=== PATIENT | female | born 2005 | race Caucasian/White ===

== ENCOUNTER → 2024-05-21 | Outpatient (CLI) | payer BC, SELFPAY ==
[2024-05-21 17:04] LABS: Absolute Lymphocyte Count 1.99 X10^3/uL (0.83-4.51); Absolute Neutrophil Count 4.2 X10^3/uL (2.0-7.7); Basophil# 0.09 X10^3/uL; Basophil% 1.3 % (0-1); Eosinophil# 0.13 X10^3/uL; Eosinophils% 1.8 % (0-5); Hematocrit 41.3 % (37-47); Hemoglobin 13.7 g/dL (12.0-15.0); Lymphocyte # 1.99 X10^3/ul (0.83-4.51); Lymphocyte % 27.7 % (19-41); Mean Corp Hgb Conc 33.2 g/dL (32-36); Mean Corpuscular Hgb 28.2 pg (27.0-32.0); Mean Platelet Vol. 11.7 fl (6.2-12.0); Monocyte# 0.74 X10^3/uL; Monocyte% 10.3 % (0-10); NRBC Flagged by Analyzer 0 % (0-5); Neutrophil # 4.22 X10^3/uL (2.7-7.7); Neutrophil % 58.8 % (47-70); Platelet Count 268 K/mm3 (150-450); RBC Distribution Width CV 13.1 % (11.6-14.6); RBC Distribution Width SD 40.5 fl (35.1-43.9); Red Blood Count 4.86 M/mm3 (4.2-5.4); White Blood Count 7.2 K/mm3 (4.4-11.0)
[2024-05-21 18:17] LABS: Cholesterol 169 mg/dL (<=190); High Density Lipoprotein 71 mg/dL; Low Density Lipoprotein Calc. 87 mg/dL; Triglycerides 55 mg/dL; Very Low Density Lipoprotein 11 mg/dL (5-40); cholesterol:hdl ratio screen 2.37
[2024-05-21 18:31] LABS: ALB/GLOB Ratio 1.7 RATIO (0.9-2.4); AST(SGOT) 19 U/L (<=31); Alanine Aminotransfer ALT/SGPT 14 U/L (<=34); Albumin, Serum 4.6 g/dL (3.5-5.0); Alkaline Phosphatase 76 U/L (35-104); Anion Gap 11 (5-15); BUN 12 mg/dL (4-19); Calcium,Total 9.6 mg/dL (7.6-11.0); Carbon Dioxide 24.2 mmol/L (21.0-32.0); Chloride 102 mmol/L (98-108); Creatinine, Serum 0.79 mg/dL (0.70-1.20); EST Glomerular Filtration Rate 110 (>60); Globulin 2.7 g/dL (2.2-4.2); Glucose 78 mg/dL (70-99); Potassium 4.1 mmol/L (3.3-5.1); Protein, Total 7.3 g/dL (5.9-8.4); Sodium Level 137 mmol/L (133-145); Total Bilirubin 0.49 mg/dL (0.00-1.30)
== END | disposition home or self-care (01) ==
LOC: BIMLAB 15:17
PROVIDERS: PCP Physician Assistant; Referring Provider Physician Assistant; Visit Provider Physician Assistant
DX: Z00.00 Encounter for general adult medical examination without abnormal findings (principal)
CPT/HCPCS: 36415; 80053; 80061; 85025

== ENCOUNTER 2024-09-04 18:38 | Emergency (ER) | payer BC, SELFPAY ==
[2024-09-04 18:39] VITALS: BP 117/77; PULSE 104; RESP 16; TEMP 36.9; O2SAT 100; BMI 19.5
--- NOTE | 2024-09-04 19:55 | ED.RN ---
patient states LMP was 07/18/2024
--- NOTE | 2024-09-04 20:07 | US_ITS ---
PROCEDURE: TRANSVAGINAL W/PREG US 09/04/2024 REASON FOR EXAM: BLEEDING FIRST TRIMESTER TECHNIQUE: Transvaginal ultrasound with color Doppler interrogation. COMPARISON: None. FINDINGS: Heart Rate: 104 (average) Uterine Abnormalities: Maternal uterus is unremarkable. Ovaries / Adnexa: Both maternal ovaries are visualized and unremarkable. The uterus is normal in size with small intramural fibroid. The cervical os is closed. No free pelvic fluid. DIMENSIONS: Parameter Measurement / EGA Paola Rump Length: 0.2 cm/6 weeks 0 days Gestational Sac: 1.8 cm/6 weeks 5 days Yolk Sac: 0.3 cm ESTIMATED GESTATIONAL AGE: By Ultrasound: 6 weeks 3 days By LMP: 6 weeks 6 days ESTIMATED DATE OF DELIVERY: By Ultrasound: 04/27/2025 By LMP: 04/24/2025 US/Transvaginal w/Preg US IMPRESSION: UNREMARKABLE FIRST TRIMESTER ULTRASOUND. Reading Location: [id number]
--- OUTSIDE RECORDS SUMMARY | 2024-09-04 20:12 | XMS RPT_ITS | CCD ---
Author Organization [facility] Care Team Providers Care Churn Tender Name Role Phone Unavailable Primary Care Provider Tamara Leon BROOD HATCHERY MANAGERJacki SEWELL Primary Care Provider [phone] HILARIO RAO Attending Unavailable JACKI LEON Primary Care Unavailable Unavailable Primary Care Provider Trino Rodgers Attending Unavailable Deepali Marrero Primary Care Unavailable Deepali Marrero Referring Unavailable Trino Juarez Attending Unavailable Trino Juarez Referring Unavailable Trino Juarez Primary Care Unavailable Janes MARRERO, Dr. Palumbo Primary Care Provider Dr. Deepali Marrero MD Referring Provider Trino Arenas Attending Provider [phone] Trino Arenas Primary Care Provider [phone] Trino Arenas Referring Provider [phone] SINDHU SIMON Attending Unavailable SINDHU SIMON Referring Unavailable SINDHU SIMON Referring Unavailable Medications Current Medications Medication Drug Class(es) Dates Sig (Normalized) Sig (Original) aspirin 81 mg delayed release oral tablet (2 sources) Platelet Aggregation Inhibitor, Nonsteroidal Anti-inflammatory Drug Start: 09-01-2024 take 1 tablet by mouth once daily at bedtime aspirin, enteric coated (ECOTRIN LOW STRENGTH) 81 mg EC tablet Indications: 6 weeks gestation of (HCC) Take 1 tablet by mouth daily at bedtime. Starting at 12 weeks. 90 tablet 2 09/01/2024 Active Lidocaine (2 sources) Antiarrhythmic, Amide Local Anesthetic Start: 03-05-2024 End: 03-05-2024 lidocaine (Xylocaine) 10 mg/mL (1 %) injection 1 mL Start: 03-05-2024 End: 03-05-2024 1 mL, infiltration, Once, On Fri03/05/24 at 0915, For 1 dose nitrofurantoin, macrocrystals 25 mg / nitrofurantoin, monohydrate 75 mg oral capsule (2 sources) Nitrofuran Antibacterial Start: 04-06-2024 End: 04-11-2024 take 1 capsule by mouth twice daily nitrofurantoin monohydrate and macrocrystal (MACROBID) 100 mg capsule Indications: Dysuria Take 1 capsule by mouth two times a day for 5 days. 10 capsule 04/06/2024 04/11/2024 Active PNV no.95/ferrous fum/folic ac ( ORAL) (2 sources) PNV no.95/ferrou s fum/folic ac ( ORAL) Take by mouth. Active predniSONE 20 mg oral tablet (2 sources) Start: 10-09-2023 End: 10-13-2023 take 2 tablets by mouth once daily at mealtime predniSONE (DELTASONE) 20 mg tablet Take 2 tablets by mouth once daily for 4 days. Take daily with food. 8 tablet 0 10/09/2023 10/13/2023 Active Completed/Discontinued Medications Medication Drug Class(es) Dates Sig (Normalized) Sig (Original) amoxicillin 500 mg oral tablet (1 source) Penicillin-class Antibacterial Start: 02-21-2014 End: 04-27-2021 take 1 tablet by mouth every eight hours Amoxicillin 500 MG tablet Discontinued 500 mg PO EVERY 8 HOURS February 21, 2014 1:00am April 27, 2021 5:43pm etonogestrel 68 mg drug implant (8 sources) Progestin End: 09-01-2024 etonogestrel (NEXPLANON) 68 mg impl subdermal implant 68 mg by SUBDERMAL route. 09/01/2024 Discontinued Comment on above: 68 mg by SUBDERMAL r oute. Problems Problem Classification Problem Date Documented Date Episodic/Chronic Administrative/social admission (3 sources) Encounter for pre-employment examination; Translations: [Patient encounter status] Onset: 05-25-2024 05-21-2024 Episodic Anxiety disorders (5 sources) Mixed anxiety and depressive disorder; Translations: [Other specified anxiety disorders] Onset: 09-01-2024 09-01-2024 Chronic Contraceptive and procreative management (2 sources) Subcutaneous contraceptive implant present; Translations: [Encounter for surveillance of implantable subdermal contraceptive] 03-05-2024 Episodic Genitourinary symptoms and ill-defined conditions (1 source) Dysuria; Translations: [Dysuria] 04-06-2024 Episodic Immunizations and screening for infectious disease (2 sources) Patient encounter status; Translations: [Encounter for screening for infections with a predominantly sexual mode of transmission] Onset: 09-01-2024 09-01-2024 Episodic Mycoses (1 source) Tinea corporis; Translations: [Tinea corporis] 04-27-2021 Episodic Nonmalignant breast conditions (4 sources) Lump in upper outer quadrant of right breast; Translations: [Unspecified lump in the right breast, upper outer quadrant] 04-17-2023 Episodic Other complications of (4 sources) Vomiting of , unspecified; Translations: [Unspecified vomiting of , unspecified as to episode of care or not applicable] Onset: 09-01-2024 09-01-2024 Episodic Other and delivery including normal (10 sources) with uncertain dates; Translations: [Normal ] Onset: 09-01-2024 09-01-2024 Episodic Other screening for suspected conditions (not mental disorders or infectious disease) (2 sources) Cancer cervix screening status; Translations: [Encounter for screening for malignant neoplasm of cervix] Onset: 09-01-2024 09-01-2024 Episodic Residual codes; unclassified (1 source) Unprotected sexual intercourse; Translations: [High risk heterosexual behavior] 04-06-2024 Episodic Residual codes; unclassified (2 sources) Gestation period, 6 weeks; Translations: [Less than 8 weeks gestation of ] 09-01-2024 Episodic Residual codes; unclassified (1 source) Less than 8 weeks gestation of ; Translations: [6 weeks gestation of (HCC)] Onset: 09-01-2024 Episodic Spondylosis; intervertebral disc disorders; other back problems (1 source) Low back pain; Translations: [Low back pain without sciatica, unspecified back pain laterality, unspecified chronicity] 10-09-2023 Episodic Unclassified (2 sources) [facility] CC Education - COMMON Onset: 09-01-2024 09-01-2024 Unclassified (2 sources) Education - [place] Onset: 09-01-2024 09-01-2024 Results Test Name Value Interpretation Reference Range Facility B-HCG SerPl-[place] 5 [place] [address].0 m[IU]/mL High <5.0 [facility] Comment on above: Order Comment: Speci men Type: BLOOD SPECIMENOrdering Facility: [facility] Address: [address] [place] [address] Result Comment: REINA TITATIVE HCG NORMAL RANGES Weeks of Gestation (Weeks Since LMP) 3 Weeks (5.8-71.2 mIU/mL) 4 Weeks (9.5-750 mIU/mL) 5 Weeks (217-7138 mIU/mL) 6 Weeks (158-31468 mIU/mL) 7 Weeks (3697-298575 mIU/mL) 8 Weeks (93848-233138 mIU/mL) 9 Weeks (36962-111752 mIU/mL) 10 Weeks (92782-447193 mIU/mL) 12 Weeks (20175-856645 mIU/mL) Referenced to [facility] Performed By: #### 2 1198-7 ####[facility] [id number] [place] [address] [place] CNPAretha 09-02-2024 CNPN Telephone (PSYRMN) EDY MOHR ([id number]) 1 F Date Time Provider Department 09/02/24 VICKY RIVERO PSYRMN During your visit today, we recorded the following information about you: Vicky Rivero LISW 09/02/2024 10:14 AM Signed Phone call to patient regarding [facility] referral. Patient did not answer, unable to leave message. [facility] SW can be reached at: [place]: [phone] [place]:[phone] Allergies As of Date: 09/02/2024 (No Known Allergies) Date Reviewed: 09/01/2024 Reviewed by: Sindhu Simon APRN.DENTAL CHAIR ASSEMBLER - Fully Assessed Reason for Visit: [facility] Consult Follow Up [Other] Prescriptions as of 09/02/2024 - aspirin, enteric coated (ECOTRIN LOW STRENGTH) 81 mg EC tablet Take 1 tablet by mouth daily at bedtime. Starting at 12 weeks. - PNV no.95/ferrous fum/folic ac ( ORAL) Take by mouth. Problem List As Of Date 09/02/2024 Noted Resolved with uncertain dates in first trimest*09/01/2024 Nausea and vomiting during (HCC) [O21*09/01/2024 Depression with anxiety [F41.8] 09/01/2024 Encounter for supervision of normal first pregn*09/01/2024 Encounter Status:Closed by VICKY RIVERO on 09/02/24 Normal [facility] CNPN Telephone (PSYRMN) EDY MOHR ([id number]) 1 F Date Time Provider Department 09/02/24 VICKY RIVERO PSYRMN During your visit today, we recorded the following information about you: Vicky Rivero LISW 09/02/2024 10:29 AM Signed Integrated Mental Health Plan of Care Review of referral with patient. Was patient aware of [facility] referral placement by provider?Yes Is the patient currently connected for care : No If not connected to Care are they agreeable to referral?Yes If agreeable to referral, are they:External Comment: Pt need Assisted in making appt at: Other [facility] SW to send patient counseling resources via [employer] Current priority status of the referral Low Additional information Patient and SW discussed [facility] referral. Patient expressed interest in counseling. Due to [facility] wait times for therapy, Pt agreeable to external referral. Discussed patient needs/preferences for therapy. SW to send patient resources via [employer] message. Patient provided with [facility] contact information to contact [facility] for support in connecting to therapy if needed. Allergies As of Date: 09/02/2024 (No Known Allergies) Date Reviewed: 09/01/2024 Reviewed by: Sindhu Simon APRN.DENTAL CHAIR ASSEMBLER - Fully Assessed Reason for Visit: Integrated Mental Health Plan of Care [Other] Prescriptions as of 09/02/2024 - aspirin, enteric coated (ECOTRIN LOW STRENGTH) 81 mg EC tablet Take 1 tablet by mouth daily at bedtime. Starting at 12 weeks. - PNV no.95/ferrous fum/folic ac ( ORAL) Take by mouth. Problem List As Of Date 09/02/2024 Noted Resolved with uncertain dates in first trimest*09/01/2024 Nausea and vomiting during (HCC) [O21*09/01/2024 Depression with anxiety [F41.8] 09/01/2024 Encounter for supervision of normal first pregn*09/01/2024 Encounter Status:Closed by VICKY RIVERO on 09/02/24 Normal [facility] B-HCG SerPl-[place] 5 [place] [address].0 m[IU]/mL High <5.0 [facility] Comment on above: Order Comment: Speci men Type: BLOOD SPECIMENOrdering Facility: [facility] Address: [address] [place] [address] Result Comment: REINA TITATIVE HCG NORMAL RANGES Weeks of Gestation (Weeks Since LMP) 3 Weeks (5.8-71.2 mIU/mL) 4 Weeks (9.5-750 mIU/mL) 5 Weeks (217-7138 mIU/mL) 6 Weeks (158-66430 mIU/mL) 7 Weeks (3697-838682 mIU/mL) 8 Weeks (97413-154769 mIU/mL) 9 Weeks (45264-978214 mIU/mL) 10 Weeks (77936-675887 mIU/mL) 12 Weeks (17154-376134 mIU/mL) Referenced to 4th [facility] of [facility] Performed By: #### 2 1198-7 ####[facility] [id number] [place] [address] [place] Bacteria Ur Culton Bacteria identified Cx Nom (U) ORGANISM ID: 1 10,000 -<50,000 CFU/ml Normal urogenital nancy Normal [facility] Comment on above: Performed By: #### 6 30-4 ####[facility]CL[facility] [id number] [place] [address] [place] C. trachomatis+N. gonorrhoea e DNA JERAD+probe Ql (Unsp spec)on 09-01-2024 C. trachomatis rRNA JERAD+probe Ql (Unsp spec) Not detected Normal Not detected [facility] Comment on above: Order Comment: Speci men Type: SWABOrdering Facility: [facility] Address: [address] [place] [address] Performed By: #### T RVAMP, 83050-8 ####[facility]CLIA [id number] [address] N. gonorrhoeae rRNA JERAD+probe Ql (Unsp spec) Not detected Normal Not detected [facility] Comment on above: Order Comment: Speci men Type: SWABOrdering Facility: [facility] Address: [address] [place] [address] Performed By: #### T RVAMP, 30843-1 ####[facility] [id number] [place] [address] [place] CBC W Auto Differential pane l (Bld)on 09-01-2024 Basophils (Bld) [#/Vol] 0.11 10*3/uL High <0.11 [facility] Comment on above: Order Comment: Speci men Type: BLOOD SPECIMENOrdering Facility: [facility] Address: [address] [place] [address] Performed By: #### 5 7021-8 ####[facility] [id number] [place] [address] [place] Basophils/100 WBC (Bld) 1.4 % Normal [facility] Comment on above: Order Comment: Speci men Type: BLOOD SPECIMENOrdering Facility: [facility] Address: [address] [place] [address] Performed By: #### 5 7021-8 ####[facility] [id number] [place] [address] [place] Differential cell count method Nom (Bld) Auto Normal [facility] Comment on above: Order Comment: Speci men Type: BLOOD SPECIMENOrdering Facility: [facility] Address: [address] [place] [address] Performed By: #### 5 7021-8 ####[facility] [id number] [place] [address] [place] Eosinophils (Bld) [#/Vol] 0.13 10*3/uL Normal <0.46 [facility] Comment on above: Order Comment: Speci men Type: BLOOD SPECIMENOrdering Facility: [facility] Address: [address] [place] [address] Performed By: #### 5 7021-8 ####[facility] [id number] [place] [address] [place] Eosinophils/100 WBC (Bld) 1.7 % Normal [facility] Comment on above: Order Comment: Speci men Type: BLOOD SPECIMENOrdering Facility: [facility] Address: [address] [place] [address] Performed By: #### 5 7021-8 ####[facility]ITAL[facility]CL[facility] [id number] [place] [address] [place] Erythrocyte distribution width (RBC) [Ratio] 13.2 % Normal 11.5-15.0 [facility] Comment on above: Order Comment: Speci men Type: BLOOD SPECIMENOrdering Facility: [facility] Address: [address] [place] [address] Performed By: #### 5 7021-8 ####[facility] [id number] [place] [address] [place] Hematocrit (Bld) [Volume fraction] 40.0 % Normal 36.0-46.0 [facility] Comment on above: Order Comment: Speci men Type: BLOOD SPECIMENOrdering Facility: [facility] Address: [address] [place] [address] Performed By: #### 5 7021-8 ####[facility]ITALNCA [id number] [place] [address] [place] Hemoglobin (Bld) [Mass/Vol] 13.4 g/dL Normal 11.5-15.5 [facility] Comment on above: Order Comment: Speci men Type: BLOOD SPECIMENOrdering Facility: [facility] Address: [address] [place] [address] Performed By: #### 5 7021-8 ####[facility] [id number] [place] [address] [place] Immature granulocytes (Bld) [#/Vol] 0.03 10*3/uL Normal <0.10 [facility] Comment on above: Order Comment: Speci men Type: BLOOD SPECIMENOrdering Facility: [facility] Address: [address] [place] [address] Performed By: #### 5 7021-8 ####[facility] HOSPITALLIA [id number] [place] [address] [place] Immature granulocytes/100 WBC (Bld) 0.4 % Normal [facility] Comment on above: Order Comment: Speci men Type: BLOOD SPECIMENOrdering Facility: [facility] Address: [address] [place] [address] Performed By: #### 5 7021-8 ####[facility] HOS[facility]ITALL[facility] [id number] [place] [address] [place] Lymphocytes (Bld) [#/Vol] 1.78 10*3/uL Normal 1.00-4.00 [facility] Comment on above: Order Comment: Speci men Type: BLOOD SPECIMENOrdering Facility: [facility] Address: [address] [place] [address] Performed By: #### 5 7021-8 ####[facility] [id number] [place] [address] [place] Lymphocytes/100 WBC (Bld) 23.0 % Normal [facility] Comment on above: Order Comment: Speci men Type: BLOOD SPECIMENOrdering Facility: [facility] Address: [address] [place] [address] Performed By: #### 5 7021-8 ####[facility] [id number] [place] [address] [place] MCH (RBC) [Entitic mass] 27.6 pg Normal 26.0-34.0 [facility] Comment on above: Order Comment: Speci men Type: BLOOD SPECIMENOrdering Facility: [facility] Address: [address] [place] [address] Performed By: #### 5 7021-8 ####[facility]ITALNCLI [id number] [place] [address] [place] MCHC (RBC) [Mass/Vol] 33.5 g/dL Normal 30.5-36.0 [facility] Comment on above: Order Comment: Speci men Type: BLOOD SPECIMENOrdering Facility: [facility] Address: [address] [place] [address] Performed By: #### 5 7021-8 ####[facility]ITALNCLIA [id number] [place] [address] [place] MCV (RBC) [Entitic vol] 82.3 fL Normal 80.0-100.0 C [facility] Comment on above: Order Comment: Speci men Type: BLOOD SPECIMENOrdering Facility: [facility] Address: [address] [place] [address] Performed By: #### 5 7021-8 ####[facility] [id number] [place] [address] [place] Monocytes (Bld) [#/Vol] 0.74 10*3/uL Normal <0.87 [facility] Comment on above: Order Comment: Speci men Type: BLOOD SPECIMENOrdering Facility: [facility] Address: [address] [place] [address] Performed By: #### 5 7021-8 ####[facility] [id number] [place] [address] [place] Monocytes/100 WBC (Bld) 9.6 % Normal C [facility] Comment on above: Order Comment: Speci men Type: BLOOD SPECIMENOrdering Facility: [facility] Address: [address] [place] [address] Performed By: #### 5 7021-8 ####[facility] [id number] [place] [address] [place] Neutrophils (Bld) [#/Vol] 4.94 10*3/uL Normal 1.45-7.50 [facility] Comment on above: Order Comment: Speci men Type: BLOOD SPECIMENOrdering Facility: [facility] Address: [address] [place] [address] Performed By: #### 5 7021-8 ####[facility] [id number] [place] [address] [place] Neutrophils/100 WBC (Bld) 63.9 % Normal [facility] Comment on above: Order Comment: Speci men Type: BLOOD SPECIMENOrdering Facility: [facility] Address: [address] [place] [address] Performed By: #### 5 7021-8 ####[facility]CL[facility] [id number] [place] [address] [place] Nucleated RBC (Bld) [#/Vol] 10*3/uL Normal <0.01 [facility] Comment on above: Order Comment: Speci men Type: BLOOD SPECIMENOrdering Facility: [facility] Address: [address] [place] [address] Performed By: #### 5 7021-8 ####[facility]ITAL[facility]CLIA [id number] [place] [address] [place] Nucleated RBC/100 WBC (Bld) [Ratio] 0.0 /100 WBC Normal [facility] Comment on above: Order Comment: Speci men Type: BLOOD SPECIMENOrdering Facility: [facility] Address: [address] [place] [address] Performed By: #### 5 7021-8 ####[facility]ITALNCL[facility] [id number] [place] [address] [place] Platelet mean volume (Bld) [Entitic vol] 11.0 fL Normal 9.0-12.7 [facility] Comment on above: Order Comment: Speci men Type: BLOOD SPECIMENOrdering Facility: [facility] Address: [address] [place] [address] Performed By: #### 5 7021-8 ####[facility]ITALNCLIA [id number] [place] [address] [place] Platelets (Bld) [#/Vol] 289 10*3/uL Normal 150-400 [facility] Comment on above: Order Comment: Speci men Type: BLOOD SPECIMENOrdering Facility: [facility] Address: [address] [place] [address] Performed By: #### 5 7021-8 ####[facility]ITALL[facility] [id number] [place] [address] [place] RBC (Bld) [#/Vol] 4.86 10*6/uL Normal 3.90-5.20 [facility] Comment on above: Order Comment: Speci men Type: BLOOD SPECIMENOrdering Facility: [facility] Address: [address] [place] [address] Performed By: #### 5 7021-8 ####[facility]ITALNCLIA [id number] [place] [address] [place] WBC (Bld) [#/Vol] 7.73 10*3/uL Normal 3.70-11.00 [facility] Comment on above: Order Comment: Speci men Type: BLOOD SPECIMENOrdering Facility: [facility] Address: [address] [place] [address] Performed By: #### 5 7021-8 ####[facility]CLIA [id number] [address] [place] CNPNon 09-01-2024 CNPN Telephone (PSYRMN) EDY MOHR ([id number]) 1 F Date Time Provider Department 09/01/24 VICKY RVIERO PSYRMN During your visit today, we recorded the following information about you: Vicky Rivero LISW 09/01/2024 3:25 PM Signed Phone call to patient regarding [facility] referral. Patient did not answer, unable to leave voicemail. [facility] SW can be reached at: [place]: [phone] [place]:[phone] Allergies As of Date: 09/01/2024 (No Known Allergies) Date Reviewed: 09/01/2024 Reviewed by: Sindhu Simon APRN.DENTAL CHAIR ASSEMBLER - Fully Assessed Reason for Visit: [facility] Consult Follow Up [Other] Prescriptions as of 09/01/2024 - aspirin, enteric coated (ECOTRIN LOW STRENGTH) 81 mg EC tablet Take 1 tablet by mouth daily at bedtime. Starting at 12 weeks. - PNV no.95/ferrous fum/folic ac ( ORAL) Take by mouth. Problem List As Of Date 09/01/2024 Noted Resolved with uncertain dates in first trimest*09/01/2024 Nausea and vomiting during (HCC) [O21*09/01/2024 Depression with anxiety [F41.8] 09/01/2024 Encounter for supervision of normal first pregn*09/01/2024 Encounter Status:Closed by VICKY RIVERO on 09/01/24 Normal [facility] HBV surface Ag Ql (S)on 08-15 Interpretation and review of laboratory results Normal [facility] HBV surface Ag Ser Qlon 08-15 HBV surface Ag Ql (S) Negative Normal Negative [facility] Comment on above: Order Comment: Speci men Type: BLOOD SPECIMENOrdering Facility: [facility] Address: [address] [place] [address] Performed By: #### 5 195-3, 29184-6, 74065-6 ####[facility] LABCL[facility] [id number] [place] [address] [place] HCG QUANTIT[place] 5 [place] [address] m[IU]/mL High [facility] Comment on above: QUANTITATIVE HCG NOR MAL RANGES Weeks of Gestation (Weeks Since LMP) 3 Weeks (5.8-71.2 mIU/mL) 4 Weeks (9.5-750 mIU/mL) 5 Weeks (217-7138 mIU/mL) 6 Weeks (158-95710 mIU/mL) 7 Weeks (3697-721543 mIU/mL) 8 Weeks (63297-839100 mIU/mL) 9 Weeks (79591-798113 mIU/mL) 10 Weeks (75072-785258 mIU/mL) 12 Weeks (08367-855020 mIU/mL) Referenced to 4th [facility] of [facility] HCG.beta subunit Qnon 2024 Interpretation and review of laboratory results Abnormal [facility] HCV Ab Ql (S)on 09-01-2024 Interpretation and review of laboratory results Normal [facility] HCV Ab Ser Qlon 09-01-2024 HCV Ab Ql (S) Negative Normal Negative [facility] Comment on above: Order Comment: Speci men Type: BLOOD SPECIMENOrdering Facility: [facility] Address: [address] [place] [address] Result Comment: The result suggests no evidence of infection with Hepatitis C virus. Should recent infection be suspected, repeat testing may be considered 4-6 weeks after this draw. Performed By: #### 1 6128-1 ####[facility] [id number] [place] [address] [place] HEPATITIS B SURFACE ANTIGENo n 09-01-2024 HBV surface Ag Ql (S) Negative Negative [facility] HEPATITIS C ANTIBODY IA WITH CONFIRMATIONon 09-01-2024 HCV Ab Ql (S) Negative Negative [facility] Comment on above: The result suggests no evidence of infection with Hepatitis C virus. Should recent infection be suspected, repeat testing may be considered 4-6 weeks after this draw. HIV 1+2 Ab IA Qlon HIV 1 and 2 Ab IA.rapid Nom (S/P/Bld) [facility] Comment on above: Test not indicated. HIV 1+2 Ab+HIV1 p24 Ag IA Ql Non-Reactive Nonreactive [facility] HIV immunoassay testing algorithm interpretation (S/P/Bld) [Interp] [facility] Comment on above: No evidence of HIV-1 or HIV-2 infection. Should recent infection be suspected, repeat testing may be considered 2-3 weeks after this draw. [place] Rev. Code 3701.243(E): This information has been disclosed to you from confidential records protected from disclosure by state law. You shall make no further disclosure of this information without the specific, written, and informed release of the individual to whom it pertains or as otherwise permitted by state law. A general authorization for the release of medical or other information is not sufficient for the purpose of the release of HIV test results or diagnoses. HIV 1 and 2 Ab IA.rapid Nom (S/P/Bld) Normal [facility] Comment on above: Order Comment: Speci men Type: BLOOD SPECIMENOrdering Facility: [facility] Address: [address] [place] [address] Result Comment: Test not indicated. Performed By: #### 5 195-3, 83709-1, 07514-6 ####[facility] [id number] [place] [address] [place] HIV 1+2 Ab+HIV1 p24 Ag IA Ql Non-Reactive Normal Nonreactive [facility] Comment on above: Order Comment: Speci men Type: BLOOD SPECIMENOrdering Facility: [facility] Address: [address] [place] [address] Performed By: #### 5 195-3, 74677-7, 18741-1 ####[facility] [id number] [place] [address] [place] HIV immunoassay testing algorithm interpretation (S/P/Bld) [Interp] Normal [facility] Comment on above: Order Comment: Speci men Type: BLOOD SPECIMENOrdering Facility: [facility] Address: [address] [place] [address] Result Comment: No e vidence of HIV-1 or HIV-2 infection. Should recent infection be suspected, repeat testing may be considered 2-3 weeks after this draw. [place] Rev. Code 3701.243(E): This information has been disclosed to you from confidential records protected from disclosure by state law. You shall make no further disclosure of this information without the specific, written, and informed release of the individual to whom it pertains or as otherwise permitted by state law. A general authorization for the release of medical or other information is not sufficient for the purpose of the release of HIV test results or diagnoses. Performed By: #### 5 195-3, 17689-2, 49812-4 ####[facility] [id number] [address] [address] [facility] [place] HbA1c (Bld)on 09-01-2024 Average glucose Estimated from glycated hemoglobin (Bld) [Mass/Vol] 100 mg/dL Normal [facility] Comment on above: Order Comment: Speci men Type: BLOOD SPECIMENOrdering Facility: [facility] Address: [address] [place] [address] Result Comment: eAG: (Estimated average glucose) is a calculated value from HgbA1c and is artists' booking representative of the average blood glucose level in the last 2-3 month period. Performed By: #### 5 5454-3 ####[facility] [id number] [address] HbA1c (Bld) [Mass fraction] 5.1 % Normal 4.3-5.6 [facility] Comment on above: Order Comment: Speci men Type: BLOOD SPECIMENOrdering Facility: [facility] Address: [address] [place] [address] Result Comment: [place] Diabetes Association guidelines indicate that patients with HgbA1c in the range 5.7-6.4% are at increased risk for development of diabetes, and intervention by lifestyle modification may be beneficial. HgbA1c greater or equal to 6.5% is considered diagnostic of diabetes. Performed By: #### 5 5454-3 ####[facility] [id number] [place] [id number] [facility] No Panel Informationon 09-01 [facility] POC ADMISSIONS ASSISTANT ULTRASOUNDon 09-02-19 25 Indication Viability; confirm cardiac activity Impression Single intrauterine gestational sac with yolk sac. Possible pole visualized. Recommendations Follow-up ultrasound in at least 11 days. Method Transabdominal ultrasound examination, Transvaginal ultrasound examination. View: Adequate visualization Márquez . Number of embryos: 1 Dating LMP on: 07/18/2024 GA by LMP 6 w + 3 d JERE by LMP: 04/24/2025 Assigned: based on the LMP, selected on 09/01/2024 Assigned GA 6 w + 3 d Assigned JERE: 04/24/2025 Biometry Standard CRL 1.7 mm -/- <1% Hadlock Assessment Gestational sac: visualized Location: intrauterine Yolk sac: visualized Embryo: uncertain CRL 1.7 mm -/- <1% [facility] Performed By: Sindhu Simon NP Read By: Sindhu Simon NP MATERNAL MEDICINE [facility] Radiology Study observation (narrative) [facility] RUBELLA IGG ANTIBODYon 09-01 Interpretation and review of laboratory results Normal [facility] Rubella IgG, Qual Positive Positive [facility] Comment on above: The result suggests recent or past exposure to Rubella virus or history of Rubella vaccination. Positive result may also be seen due to presence of passively-transferred antibodies. Please correlate with patient's history. [facility] RUBELLA IGG AB, QUAL Positive Normal Positive [facility] Comment on above: Order Comment: Speci arthur Type: BLOOD SPECIMENOrdering Facility: [facility] Address: [address] [place] [address] Result Comment: The result suggests recent or past exposure to Rubella virus or history of Rubella vaccination. Positive result may also be seen due to presence of passively-transferred antibodies. Please correlate with patient's history. Performed By: #### R UBIGG ####[facility] [id number] [place] [address] [place] Reagin and Treponema pallidu m IgG and IgM [Interp]on 09-01-2024 T. pallidum IgG+IgM IA Ql (S) Non-Reactive Nonreactive [facility] T. pallidum IgG+IgM IA Ql (S) Non-Reactive Normal Nonreactive [facility] Comment on above: Order Comment: Speci men Type: BLOOD SPECIMENOrdering Facility: [facility] Address: [address] [place] [address] Performed By: #### 5 195-3, 20918-7, 33754-2 ####[facility] [id number] [place] [address] [place] Reagin+T pallidum IgG+IgM Se rPl-Impon 09-01-2024 Reagin and Treponema pallidum IgG and IgM [Interp] Cannot exclude recent Treponemal infection if specimen collected within 7-10 days after appearance of suspect lesions or 2-3 weeks after an exposure. Clinical correlation is required. Normal [facility] Comment on above: Order Comment: Speci men Type: BLOOD SPECIMENOrdering Facility: [facility] Address: [address] [place] [address] Performed By: #### 5 195-3, 73648-5, 85718-3 ####[facility] [id number] [place] [address] [place] SYPHILIS TREPONEMAL W/REFLEX on 09-01-2024 Reagin and Treponema pallidum IgG and IgM [Interp] Cannot exclude recent Treponemal infection if specimen collected within 7-10 days after appearance of suspect lesions or 2-3 weeks after an exposure. Clinical correlation is required. [facility] TRICHOMONAS VAGINALIS NAATon 09-01-2024 T. vaginalis DNA JERAD+probe Ql (Unsp spec) Not detected Normal Not detected [facility] Comment on above: Order Comment: Speci men Type: SWABOrdering Facility: [facility] Address: [address] [place] [address] Performed By: #### T RVAMP, 53561-5 ####[facility] [id number] [place] [address] [place] TYPE + SCREEN PRENATALon ABO group Nom (Bld) O [facility] Blood group antibody screen Ql Negative [facility] Rh Nom (Bld) Positive [facility] Type and Screen Expiration 09/04/2024 23:59 [facility] ABO O Normal [facility] Comment on above: Order Comment: Speci men Type: BLOOD SPECIMEN [facility] Address: [address] [place] [address] Performed By: #### T SPN #### [facility] CLIA [id number] [address] [place] [address] [place] Rh Nom (Bld) Positive Normal [facility] Comment on above: Order Comment: Speci men Type: BLOOD SPECIMEN [facility] Address: [address] [place] [address] Performed By: #### T SPN #### [facility] CLIA [id number] [address] [place], [place] [address] [address] [address] [place] TYPE AND SCREEN EXPIRATION 09/04/2024 23:59 Normal [facility] Comment on above: Order Comment: Speci men Type: BLOOD SPECIMEN [facility] Address: [address] [place] [address] Performed By: #### T SPN #### [facility] CLIA [id number] [address] [place] [address] [place] Absolute neutrophil countOrd ered By: Trino Juarez on 05-21-2024 Neutrophils (Bld) [#/Vol] 4.2 10*3/uL 2.0-7.7 [facility] Anion gap in Serum or Plasma Ordered By: Trino Juarez on 05-21-2024 Anion gap [Moles/Vol] 11 mmol/L 5-15 [facility] BUN/creatinine ratioOrdered By: Trino Juarez on 05-21-2024 Urea nitrogen/Creatinine [Mass ratio] 15.0 mg/mg 10-20 [facility] Basophil percentageOrdered B y: Trino Juarez on 05-21-2024 Basophils/100 WBC (Bld) 1.3 % High 0-1 [facility] Bilirubin, totalOrdered By: Trino Juarez on 05-21-2024 Bilirubin [Mass/Vol] 0.49 mg/dL 0.00-1.30 [facility] CBC W/Diff, Automatedon Absolute Lymph 1.99 X10 3/uL Normal 0.83-4.51 [facility] Comment on above: Performed By: #### L 500.4050, L100.0100, L500.4100 #### [facility] [address] [place], [place], [id number] Absolute Neut 4.2 X10 3/uL Normal 2.0-7.7 [facility] Comment on above: Performed By: #### L 500.4050, L100.0100, L500.4100 #### [facility] [address] [place], [address] Basophils/100 WBC (Bld) 1.3 % High 0-1 [facility] Comment on above: Performed By: #### L 500.4050, L100.0100, L500.4100 #### [facility] [address] [place], [address] Eosinophils/100 WBC (Bld) 1.8 % Normal 0-5 [facility] Comment on above: Performed By: #### L 500.4050, L100.0100, L500.4100 #### [facility] [address] [place], [address] Erythrocyte distribution width (RBC) [Ratio] 13.1 % Normal 11.6-14.6 [facility] Comment on above: Performed By: #### L 500.4050, L100.0100, L500.4100 #### [facility] [address] [place], [address] Hematocrit (Bld) [Volume fraction] 41.3 % Normal 37-47 [facility] Comment on above: Performed By: #### L 500.4050, L100.0100, L500.4100 #### [facility] [address] [place], [address] Hemoglobin (Bld) [Mass/Vol] 13.7 g/dL Normal 12.0-15.0 [facility] Comment on above: Performed By: #### L 500.4050, L100.0100, L500.4100 #### [facility] [address] [place], [address] IG% 0.100 Normal 0.0-0.9 [facility] Comment on above: Result Comment: IG% - Immature Granulocytes (promyelocytes, myelocytes and metamyelocytes) > 1% indicates that a LEFT SHIFT is Present. Performed By: #### L 500.4050, L100.0100, L500.4100 #### [facility] [address] [place], [address] Lymphocytes/100 WBC (Bld) 27.7 % Normal 19-41 [facility] Comment on above: Performed By: #### L 500.4050, L100.0100, L500.4100 #### [facility] [address] [place], [address] MCH (RBC) [Entitic mass] 28.2 pg Normal 27.0-32.0 [facility] Comment on above: Performed By: #### L 500.4050, L100.0100, L500.4100 #### [facility] [address] [place], [address] MCHC (RBC) [Mass/Vol] 33.2 g/dL Normal 32-36 [facility] Comment on above: Performed By: #### L 500.4050, L100.0100, L500.4100 #### [facility] [address] [place], [address] MCV (RBC) [Entitic vol] 85.0 fL Normal 81-99 [facility] Comment on above: Performed By: #### L 500.4050, L100.0100, L500.4100 #### [facility] [address] [place], [address] Monocytes/100 WBC (Bld) 10.3 % High 0-10 [facility] Comment on above: Performed By: #### L 500.4050, L100.0100, L500.4100 #### [facility] [address] [place], [address] Neutrophils/100 WBC (Bld) 58.8 % Normal 47-70 [facility] Comment on above: Performed By: #### L 500.4050, L100.0100, L500.4100 #### [facility] [address] [place], [address] Nucleated RBC (Bld) [#/Vol] 0 10*3/uL Normal 0-5 [facility] Comment on above: Performed By: #### L 500.4050, L100.0100, L500.4100 #### [facility] [address] [place], [address] Platelet mean volume (Bld) [Entitic vol] 11.7 fL Normal 6.2-12.0 [facility] Comment on above: Performed By: #### L 500.4050, L100.0100, L500.4100 #### [facility] [address] [place], [address] Platelets (Bld) [#/Vol] 268 10*3/uL Normal 150-450 [facility] Comment on above: Performed By: #### L 500.4050, L100.0100, L500.4100 #### [facility] [address] [place], [address] RBC (Bld) [#/Vol] 4.86 10*6/uL Normal 4.2-5.4 [facility] Comment on above: Performed By: #### L 500.4050, L100.0100, L500.4100 #### [facility] [address] [place], [address] RDW SD 40.5 fl Normal 35.1-43.9 [facility] Comment on above: Performed By: #### L 500.4050, L100.0100, L500.4100 #### [facility] [address] [place], [address] WBC (Bld) [#/Vol] 7.2 10*3/uL Normal 4.4-11.0 [facility] Comment on above: Performed By: #### L 500.4050, L100.0100, L500.4100 #### [facility] [address] [place], [address] Calculated very low density lipoprotein (VLDL) cholesterol measurementOrdered By: Trino Juarez on 05-21-2024 VLDL Cholesterol 11 mg/dL 5-40 [facility] Carbon dioxide, total [Moles /volume] in Central venous bloodOrdered By: Trino Juarez on 05-21-2024 CO2 [Moles/Vol] 24.2 mmol/L 21.0-32.0 [facility] Chloride assayOrdered By: Boris Juarez on 05-21-2024 Chloride [Moles/Vol] 102 mmol/L 98-108 [facility] Comprehensive Metabolic Prof ilon 05-21-2024 Albumin [Mass/Vol] 4.6 g/dL Normal 3.5-5.0 [facility] Comment on above: Performed By: #### L 500.4050, L100.0100, L500.4100 #### [facility] [address] [place], [address] Albumin/Globulin [Mass ratio] 1.7 {ratio} Normal 0.9-2.4 [facility] Comment on above: Performed By: #### L 500.4050, L100.0100, L500.4100 #### [facility] [address] [place], [address] ALK PHOS 76 U/L Normal 35-104 [facility] Comment on above: Performed By: #### L 500.4050, L100.0100, L500.4100 #### [facility] [address] [place], [address] ALT [Catalytic activity/Vol] 14 U/L Normal <=34 [facility] Comment on above: Performed By: #### L 500.4050, L100.0100, L500.4100 #### [facility] [address] [place], [address] AST [Catalytic activity/Vol] 19 U/L Normal <=31 [facility] Comment on above: Performed By: #### L 500.4050, L100.0100, L500.4100 #### [facility] [address] [place], [address] Bilirubin [Mass/Vol] 0.49 mg/dL Normal 0.00-1.30 [facility] Comment on above: Performed By: #### L 500.4050, L100.0100, L500.4100 #### [facility] [address] [place], [address] BUN/CRE 15.0 RATIO Normal 10-20 [facility] Comment on above: Performed By: #### L 500.4050, L100.0100, L500.4100 #### [facility] [address] [place], [address] Calcium [Mass/Vol] 9.6 mg/dL Normal 7.6-11.0 [facility] Comment on above: Performed By: #### L 500.4050, L100.0100, L500.4100 #### [facility] [address] [place], [address] Chloride [Moles/Vol] 102 mmol/L Normal 98-108 [facility] Comment on above: Performed By: #### L 500.4050, L100.0100, L500.4100 #### [facility] [address] [place], [address] CO2 [Moles/Vol] 24.2 mmol/L Normal 21.0-32.0 [facility] Comment on above: Performed By: #### L 500.4050, L100.0100, L500.4100 #### [facility] [address] [place], [address] Creatinine [Mass/Vol] 0.79 mg/dL Normal 0.70-1.20 [facility] Comment on above: Performed By: #### L 500.4050, L100.0100, L500.4100 #### [facility] [address] [place], [address] GAP 11 Normal 5-15 [facility] Comment on above: Performed By: #### L 500.4050, L100.0100, L500.4100 #### [facility] [address] [place], [address] GFR/1.73 sq M.predicted among non-blacks MDRD (S/P/Bld) [Vol rate/Area] 110 mL/min/{1.73_m2} Normal >60 [facility] Comment on above: Result Comment: mL/m in/1.73m2 CKD-EPI Creatinine Equation (2020) Performed By: #### L 500.4050, L100.0100, L500.4100 #### [facility] [address] [place], [address] Globulin (S) [Mass/Vol] 2.7 g/dL Normal 2.2-4.2 [facility] Comment on above: Performed By: #### L 500.4050, L100.0100, L500.4100 #### [facility] [address] [place], [address] Glucose [Mass/Vol] 78 mg/dL Normal 70-99 [facility] Comment on above: Performed By: #### L 500.4050, L100.0100, L500.4100 #### [facility] [address] [place], [address] Potassium [Moles/Vol] 4.1 mmol/L Normal 3.3-5.1 [facility] Comment on above: Performed By: #### L 500.4050, L100.0100, L500.4100 #### [facility] [address] [place], [address] Sodium [Moles/Vol] 137 mmol/L Normal 133-145 [facility] Comment on above: Performed By: #### L 500.4050, L100.0100, L500.4100 #### [facility] [address] [place], [address] T PROT 7.3 g/dL Normal 5.9-8.4 [facility] Comment on above: Performed By: #### L 500.4050, L100.0100, L500.4100 #### [facility] [address] [place], [address] Urea nitrogen [Mass/Vol] 12 mg/dL Normal 4-19 [facility] Comment on above: Performed By: #### L 500.4050, L100.0100, L500.4100 #### [facility] [address] [place], [address] Eosinophil percentageOrdered By: Trino Juarez on 05-21-2024 Eosinophils/100 WBC (Bld) 1.8 % 0-5 [facility] Erythrocyte distribution wid th ratioOrdered By: Trino Juarez on 05-21-2024 Erythrocyte distribution width (RBC) [Ratio] 13.1 % 11.6-14.6 [facility] Erythrocyte distribution wid th standard deviationOrdered By: Trino Juarez on 05-21-2024 Erythrocyte distribution width (RBC) [Entitic vol] 40.5 fL 35.1-43.9 [facility] GFR/1.73 sq M.predicted susannah g non-blacks MDRD (S/P/Bld) [Vol rate/Area]Ordered By: Trino Juarez on 05-21-2024 Estimated GFR (MDRD) Non-Af Amer 110 >60 [facility] Comment on above: mL/min/1.73m2 CKD-EP I Creatinine Equation (2020) Hematocrit Auto (Bld) [Volum e fraction]Ordered By: Trino Juarez on 05-21-2024 Hematocrit (Bld) [Volume fraction] 41.3 % 37-47 [facility] Hemoglobin measurementOrdere d By: Trino Juarez on 05-21-2024 Hemoglobin (Bld) [Mass/Vol] 13.7 g/dL 12.0-15.0 [facility] Immature granulocytes/100 WB C Auto (Bld)Ordered By: Trino Juarez on 05-21-2024 Immature granulocytes/100 WBC (Bld) 0.100 % 0.0-0.9 [facility] Comment on above: IG% - Immature Granu locytes (promyelocytes, myelocytes and metamyelocytes) > 1% indicates that a LEFT SHIFT is Present. Internal Medicine Office Vis iton 05-21-2024 Internal Medicine Office Visit [facility] [address] [place], [place] [address] OFFICE VISIT Date of Service: 05/21/24 MR#: [id number] Acct: [id number] Name: EDY MOHR Rep #: [id number] : 2005 Provider: CHRIS Velazquez Age/Sex: 19/F Location: [facility] Status: Signed Intake Vital Signs 04/27/21 16:42 05/21/24 14:39 Height 5 ft 4 in 5 ft 4 in Weight: 121 lb 4 oz BMI 20.8 BP 98/54 L Blood Pressure Location Lt brachial Position Sitting Respiration 12 Pulse 99 Pulse Source Monitor Temp 97.1 F L Temp Source Temporal Pulse Oximetry (%) 98 Oxygen Delivery Method room air Intake Visit Reasons: acute - work physical Chief Complaint: work physical Patient Access Representative Required: No Accompanied by: Self Is patient in pain?: No Allergies No Known Allergies Allergy (Verified 05/21/24 14:31) Have you fallen in the past year?: No PFSH Family History Mother Diabetes HPI HPI Chief Complaint: work physical Details: EDY MOHR, is a 19 F who presents to the office today for pre-employment physical. 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 Patient is a healthy 19 year old femal with no significant PMH. She has no surgical history. She has never nickolas on regular medications. Patient has never been withheld from physical activity due to any medical condition. Patient does smoke a couple cigarettes a day She does vape regularly small amt of caffeine No regular exercise ROS Const Constitutional: No body ache, excessive sweating, fatigue, fever(s), frequent falls, headache(s), snoring, weakness, weight change, sleep problems or change in appetite Eyes Eyes: No blurry vision, change in vision, eye pain or Light sensitivity ENT ENT: No abnormal hearing, ear or mastoid pain, tinnitus, nasal congestion, headache(s), neck pain or sore throat Resp Respiratory: No cough, shortness of breath, snoring or wheezing Cardio Cardiology: No chest pain at rest, chest pain with exertion, excessive sweating, shortness of breath, dyspnea on exertion, lightheadedness, orthopnea or palpitations Gastro GI: No abdominal pain, change in bowel habits, constipation, cramping, diarrhea, nausea/dyspepsia or vomiting Genitourinary-Female: No burning urination, painful urination, urinary incontinence, urinary frequency, blood in urine, abnormal periods or pelvic pain Musc Musculoskeletal: No abnormal gait, joint pain, back pain, limited range of motion, neck pain, numbness, stiffness, tingling or Arthritis Skin Skin: No dry skin, redness, lesions, itchy eyes, rash or wounds Neuro Neurology: No abnormal gait, abnormal hearing, abnormal speech, dizziness, weakness, frequent falls, headache(s), memory loss, numbness or tingling Psych Psychiatric: No anxiety, No change in appetite, No depression, No memory loss and No Thoughts of harming yourself/Others Endo Endocrine: No cold intolerance, excessive sweating, fatigue, flushing, heat intolerance, increased thirst/drinking, increased hunger or weight change Aller/Imm Allergy/Immunologic: No itchy eyes, seasonal allergy symptoms, hives or wheezing Cody/Lymp Hematologic/Lymphatic : No easy bleeding, easy bruising or enlarged lymph nodes Exam Const General: cooperative, healthy appearing, comfortable, no acute distress, well developed and well groomed Nutritional Appearance: average body habitus Orientation: alert, awake and not oriented x3 Limitations: mental status not altered [facility] Head: normocephalic and atraumatic Ears: hearing grossly normal bilaterally, TM's normal bilaterally, TM normal on the left, EAC's normal and no periauricular adenopathy Nose: nasal mucous membranes and turbinates normal Face and sinus: face symmetric Mouth: tongue normal, oropharynx normal and moist mucous membranes Teeth and gingiva: dentition normal Throat: posterior oropharynx normal Eyes Periorbital: periorbital findings normal Sclera: sclerae normal Pupils: PERRL and accommodation normal EOM: EOM intact bilaterally Neck Neck: no lymphadenopathy, trachea midline, supple and nontender Lymphatic: no lymphadenopathy noted Resp Effort Inspection: normal respiratory effort, able to speak in complete sentences, symmetric chest movement, normal respiratory pattern, no audible wheezes, no cough and respiratory effort not decreased Auscultation: Bilateral: Clear to Auscultation Cardio Rate: regular rate Rhythm: regular rhythm Heart Sounds: S1 normal, S2 normal and no murmurs Bruits: no carotid bruits Pulses: radial pulses present bilaterally 2+ GI Auscultation: bowels sounds not normal Palpation: soft, no hepatosplenomegaly and no guarding Musc Musculoskeletal: No muscle weakness Skin General: no rashes or lesions noted N (more content not included)... Normal [facility] LDL calc ser/plasOrdered By: Trino Juarez on 05-21-2024 LDL Cholesterol, Calculated 87 mg/dL [facility] Comment on above: Xporpxjkrq=343-626 m g/dL & Higher Udne=410 mg/dL or greater Laboratory - Chemistry and C hemistry - challengeOrdered By: Trino Juarez on 05-21-2024 AST [Catalytic activity/Vol] 19 U/L <32 [facility] Lipid Profileon 05-21-2024 CHOL:HDL 2.37 Normal [facility] Comment on above: Performed By: #### L 500.4050, L100.0100, L500.4100 #### [facility] Laboratory [address] [place], [place], [id number] Cholesterol [Mass/Vol] 169 mg/dL Normal <=190 [facility] Comment on above: Result Comment: Chol esterol level, Desirable <200 mg/dL Borderline high cholesterol 200-239 mg/dL High cholesterol >=240 mg/dL Recommendations of the NCEP Adult Treatment Panel for the following risk-cutoff thresholds for the [place] population. Performed By: #### L 500.4050, L100.0100, L500.4100 #### [facility] Laboratory [address] [place], [address] Cholesterol in HDL [Mass/Vol] 71 mg/dL Normal [facility] Comment on above: Result Comment: Shweta onal Cholesterol Education Program (NCEP) guidelines: <40 mg/dL: Low HDL-cholesterol (major risk factor for CHD) >= 60 mg/dL: High HDL-cholesterol (negative risk factor for CHD) HDL-cholesterol is affected by a number of factors, e.g. smoking, exercise, hormones, sex and age. Performed By: #### L 500.4050, L100.0100, L500.4100 #### [facility] Laboratory [address] [place], [address] Cholesterol in LDL [Mass/Vol] 87 mg/dL Normal [facility] Comment on above: Result Comment: Bord guzqug=390-717 mg/dL Higher Fcir=812 mg/dL or greater Performed By: #### L 500.4050, L100.0100, L500.4100 #### [facility] Laboratory [address] [place], [address] Cholesterol in VLDL [Mass/Vol] 11 mg/dL Normal 5-40 [facility] Comment on above: Performed By: #### L 500.4050, L100.0100, L500.4100 #### [facility] Laboratory [address] [place], [address] Triglyceride [Mass/Vol] 55 mg/dL Normal [facility] Comment on above: Result Comment: The drugs N-Acetylcysteine and Metamizole may falsely depress this assay. Normal range: <150 mg/dL Borderline High: 150-199 mg/dL High: 200-499 mg/dL Very High: >500 mg/dL Performed By: #### L 500.4050, L100.0100, L500.4100 #### [facility] Laboratory [place], [address] Lymphocytes Auto (Unsp spec) [#/Vol]Ordered By: Trino Juarez on 05-21-2024 Lymphocytes (Bld) [#/Vol] 1.99 10*3/uL 0.83-4.51 [facility] Lymphocytes/100 WBC Auto (Un sp spec)Ordered By: Trino Juarez on 05-21-2024 Lymphocytes/100 WBC (Bld) 27.7 % 19-41 [facility] MCV (mean corpuscular volume ) determinationOrdered By: Trino Juarez on 05-21-2024 MCV (RBC) [Entitic vol] 85.0 fL 81-99 [facility] Mean corpuscular hemoglobin (MCH) determinationOrdered By: Trino Juarez on 05-21-2024 MCH (RBC) [Entitic mass] 28.2 pg 27.0-32.0 [facility] Mean corpuscular hemoglobin concentration (MCHC) determinationOrdered By: Trino Juarez on 05-21-2024 MCHC (RBC) [Mass/Vol] 33.2 g/dL 32-36 [facility] Mean platelet volume determi nationOrdered By: Trino Juarez on 05-21-2024 Platelet mean volume (Bld) [Entitic vol] 11.7 fL 6.2-12.0 [facility] Monocyte percentageOrdered B y: Trino Juarez on 05-21-2024 Monocytes/100 WBC (Bld) 10.3 % High 0-10 [facility] Neutrophil percentageOrdered By: Trino Juarez on 05-21-2024 Neutrophils/100 WBC (Bld) 58.8 % 47-70 [facility] Nucleated red blood cell per centageOrdered By: Trino Juarez on 05-21-2024 Nucleated RBC/100 WBC (Bld) [Ratio] 0 % 0-5 [facility] Platelet countOrdered By: Boris Juarez on 05-21-2024 Platelets (Bld) [#/Vol] 268 10*3/uL 150-450 [facility] Potassium (Unsp spec) [Mass/ Vol]Ordered By: Trino Juarez on 05-21-2024 Potassium [Moles/Vol] 4.1 mmol/L 3.3-5.1 [facility] RBC Auto (Bld) [#/Vol]Ordere d By: Trino Juarez on 05-21-2024 RBC (Bld) [#/Vol] 4.86 10*6/uL 4.2-5.4 [facility] Screening total cholesterol/ high density lipoprotein (HDL) cholesterol ratioOrdered By: Trino Juarez on 05-21-2024 Cholesterol.total/Yany sterol in HDL [Mass ratio] 2.37 {ratio} [facility] Serum creatinine measurement (mass/volume)Ordered By: Trino Juarez on 05-21-2024 Creatinine [Mass/Vol] 0.79 mg/dL 0.70-1.20 [facility] Serum globulin measurementOr dered By: Trino Juarez on 05-21-2024 Globulin (S) [Mass/Vol] 2.7 g/dL 2.2-4.2 [facility] Serum glucose measurement (m ass/volume)Ordered By: Trino Juarez on 05-21-2024 Glucose [Mass/Vol] 78 mg/dL 70-99 [facility] Serum or plasma alanine barragan otransferase (ALT) measurementOrdered By: Trino Juarez on 05-21-2024 ALT [Catalytic activity/Vol] 14 U/L <35 [facility] Serum or plasma albumin alex urement (mass/volume)Ordered By: Trino Juarez on 05-21-2024 Albumin [Mass/Vol] 4.6 g/dL 3.5-5.0 [facility] Serum or plasma albumin/glob ulin mass ratioOrdered By: Trino Juarez on 05-21-2024 Albumin/Globulin [Mass ratio] 1.7 {ratio} 0.9-2.4 [facility] Serum or plasma alkaline mariaelena sphatase measurementOrdered By: Trino Juarez on 05-21-2024 ALP [Catalytic activity/Vol] 76 U/L 35-104 [facility] Serum or plasma calcium alex urement (mass/volume)Ordered By: Trino Juarez on 05-21-2024 Calcium [Mass/Vol] 9.6 mg/dL 7.6-11.0 [facility] Serum or plasma cholesterol in HDL measurement (mass/volume)Ordered By: Trino Juarez on 05-21-2024 Cholesterol in HDL [Mass/Vol] 71 mg/dL >40 [facility] Comment on above: National Cholesterol Education Program (NCEP) guidelines:<40 mg/dL: Low HDL-cholesterol (major risk factor for CHD)>= 60 mg/dL: High HDL-cholesterol (negative risk factor for CHD)HDL-cholesterol is affected by a number of factors, e.g. smoking, exercise, hormones, sex and age. Serum or plasma cholesterol measurement (mass/volume)Ordered By: Trino Juarez on 05-21-2024 Cholesterol [Mass/Vol] 169 mg/dL <191 [facility] Comment on above: Cholesterol level, D esirable <200 mg/dLBorderline high cholesterol 200-239 mg/dLHigh cholesterol >=240 mg/dLRecommendations of the NCEP Adult Treatment Panel for the following risk-cutoff thresholds for the [place] population. Serum or plasma urea nitroge n measurement (mass/volume)Ordered By: Trino Juarez on 05-21-2024 Urea nitrogen [Mass/Vol] 12 mg/dL 4-19 [facility] Sodium levelOrdered By: Layton Juarez on 05-21-2024 Sodium [Moles/Vol] 137 mmol/L 133-145 [facility] Total proteinOrdered By: Sher Juarez on 05-21-2024 Protein [Mass/Vol] 7.3 g/dL 5.9-8.4 [facility] Triglycerides measurementOrd ered By: Trino Juarez on 05-21-2024 Triglyceride [Mass/Vol] 55 mg/dL <199 [facility] Comment on above: The drugs N-Acetylcy steine and Metamizole may falsely depress this assay. Normal range: <150 mg/dLBorderline High: 150-199 mg/dLHigh: 200-499 mg/dLVery High: >500 mg/dL White blood cell (WBC) count Ordered By: Trino Juarez on 05-21-2024 WBC (Bld) [#/Vol] 7.2 10*3/uL 4.4-11.0 [facility] CNPNon 04-12-2024 CNPN Telephone ([facility]) EDY MOHR ([id number]) 1 F Date Time Provider Department 04/12/24 ROCIO MUÑOZ [facility] During your visit today, we recorded the following information about you: Rocio Muñoz APRN.[facility] 04/12/2024 9:54 AM Signed Please reach out and advise patient of following. Karen Howard LPN 04/12/2024 12:55 PM Signed Patient notified.Karen Howard LPN Allergies As of Date: 04/12/2024 (No Known Allergies) Date Reviewed: 04/06/2024 Reviewed by: Claudia Hartman MA - Fully Assessed Reason for Visit: Results [95] Prescriptions as of 04/12/2024 - etonogestrel (NEXPLANON) 68 mg impl subdermal implant 68 mg by SUBDERMAL route. Problem List As Of Date: 04/12/2024 (None) Encounter Status:Closed by [facility] ([facility]) EDY MOHR ([id number]) 1 F Date Time Provider Department 04/09/24 JENNIFER RICH [facility] During your visit today, we recorded the following information about you: Jennifer Rich APRN.[facility] 04/09/2024 8:32 AM Signed According to culture patient is on the correct antibiotic. Please let patient know if signs and symptoms are not improving she needs to follow-up with primary care. Claudia Hartman MA 04/09/2024 8:37 AM Signed Patient active MyChart. Patient notified via mCASH message. Claudia Hartman MA Allergies As of Date: 04/09/2024 (No Known Allergies) Date Reviewed: 04/06/2024 Reviewed by: Claudia Hartman MA - Fully Assessed Reason for Visit: Results [95] Prescriptions as of 04/09/2024 - nitrofurantoin monohydrate and macrocrystal (MACROBID) 100 mg capsule Take 1 capsule by mouth two times a day for 5 days. - etonogestrel (NEXPLANON) 68 mg impl subdermal implant 68 mg by SUBDERMAL route. Problem List As Of Date: 04/09/2024 (None) Encounter Status:Closed by CLAUDIA HARTMAN on 04/09/24 Normal [facility] BACTERIAL VAGINOSIS NAATon 0 04-06-2024 Lactobacillus crispatus+gasseri+jense thuy + Gardnerella vaginalis + Atopobium vaginae rRNA JERAD+probe Ql (Vag fld) Not detected Normal Not detected [facility] Comment on above: Order Comment: Speci men Type: SWABOrdering Facility: [facility] Address: [address] [place] [address] Performed By: #### 3 6902-5, BVAMP ####[facility] [id number] [place] [address] [place] Bacteria Ur Culton Bacteria identified Cx Nom (U) ORGANISM ID: 1 >=100,000 CFU/ml Escherichia coli ORGANISM ID: 1 (ESCHERICHIA COLI) ------ ANTIBIOTIC INTERPRETATION JOS STATUS REFERENCE RANGE ------ Ampicillin S <=2 F Susceptible <=8 , Intermediate >8 , Resistant >16 Cefazolin S <=4 F Susceptible 0-16 , Intermediate <0 or >16 , Resistant >16 For uncomplicated urinary tract infections, cefazolin results can be used to predict susceptibility or resistance to cephalexin. Ceftriaxone S <=1 F Susceptible <=1 , Intermediate >1 , Resistant >=4 Cefepime S <=1 F Susceptible <=2 , Susceptible-Dose Dependent >2 , Resistant >=16 Ertapenem S <=0.5 F Susceptible <=0.5 , Intermediate >.5 , Resistant >1 Meropenem S <=0.25 F Susceptible <=1 , Intermediate >1 , Resistant >2 Ampicillin/Sulbact S <=2 F Susceptible <=8 , Intermediate >8 , Resistant >16 Piperacillin/Tazobac S <=4 F Susceptible <16 , Susceptible-Dose Dependent >=16 , Resistant >=32 Gentamicin S <=1 F Susceptible <=2 , Intermediate >2 , Resistant >=8 Tobramycin S <=1 F Susceptible <4 , Intermediate >=4 , Resistant >=8 Trimeth sulfameth S <=20 F Susceptible <=40 , Resistant >40 Ciprofloxacin S <=0.25 F Susceptible <0.5 , Intermediate >=.5 , Resistant >=1 Nitrofurantoin S <=16 F Susceptible <=32 , Intermediate >32 , Resistant >64 Abnormal [facility] Comment on above: Performed By: #### 6 30-4 ####[facility] [id number] [place] [address] [place] C. trachomatis+N. gonorrhoea e DNA JERAD+probe Ql (Unsp spec)on 04-06-2024 C. trachomatis rRNA JERAD+probe Ql (Unsp spec) Not detected Normal Not detected [facility] Comment on above: Order Comment: Speci men Type: SWABOrdering Facility: [facility] Address: [address] [place] [address] Performed By: #### 3 6902-5, BVAMP ####[facility] [id number] [place] [address] [place] N. gonorrhoeae rRNA JERAD+probe Ql (Unsp spec) Not detected Normal Not detected [facility] Comment on above: Order Comment: Speci men Type: SWABOrdering Facility: [facility] Address: [address] [place] [address] Performed By: #### 3 6902-5, BVAMP ####[facility] [id number] [place] [address] [place] KEENAN/TRICHOMONAS NAATon 0 04-06-2024 C. glabrata RNA JERAD+probe Ql (Vag fld) Not detected Normal Not detected [facility] Comment on above: Order Comment: Speci men Type: SWABOrdering Facility: [facility] Address: [address] [place] [address] Performed By: #### C VTV ####[facility] [id number] [place] [address] [place] Keenan sp DNA JERAD+probe Ql (Vag fld) Not detected Normal Not detected [facility] Comment on above: Order Comment: Speci men Type: SWABOrdering Facility: [facility] Address: [address] [place] [address] Result Comment: The Keenan species group target includes C. albicans, C. tropicalis, C. parapsilosis, and C. dubliniensis. Performed By: #### C VTV ####[facility] [id number] [place] [address] [place] T. vaginalis DNA JERAD+probe Ql (Unsp spec) Not detected Normal Not detected [facility] Comment on above: Order Comment: Speci men Type: SWABOrdering Facility: [facility] [address]: [address] [place] [address] Performed By: #### C VTV ####[facility] [id number] [id number] [id number] [facility] CNOVon 04-06-2024 CNOV Office Visit ([facility] ) EDY MHOR ([id number]) 1 F Date Time Provider Department 04/06/24 9:45 AM JENNIFER RICH [facility] During your visit today, we recorded the following information about you: Temperature Pulse Respiration Blood pressure 96.4 degrees 78/minute 16/minute 124/82 Weight Last Period 54.9 kg 03/13/24 Jennifer Rich APRN.[employer] 04/06/2024 10:16 AM Signed CC: Patient presents with: UTI HPI Edy Mohr is a 19 year old female who presents with complaint of possible UTI. These symptoms have been present for 2 days. Associated symptoms: burning and urgency Denies: fever, chills, sweats, abdominal pain, and flank pain Treatments: nothing The ROS was otherwise negative. PMH, Medications, labs, allergies, and recent past visits with PCP were reviewed and updated as able. PHYSICAL EXAM: BP 124/82 Pulse 78 Temp (!) 35.8 ?C (96.4 ?F) (Left Tympanic) Resp 16 Wt 54.9 kg (121 lb 0.5 oz) LMP 03/13/2024 (Within Days) SpO2 98% BMI 21.44 kg/m? General: Well appearing and alert CV: Regular rate and rhythm without obvious murmur Lungs: clear to auscultation bilaterally Back: straight and symmetric Abdomen: soft, nontender, nondistended No past medical history on file. PAST SURGICAL HISTORY Procedure Laterality Date NEXPLANON INSERTION 11/04/2022 ALLERGIES Patient has no known allergies. MEDICATIONS nitrofurantoin monohydrate and macrocrystal (MACROBID) 100 mg capsule Take 1 capsule by mouth two times a day for 5 days. etonogestrel (NEXPLANON) 68 mg impl subdermal implant 68 mg by SUBDERMAL route. (Patient not taking: Reported on 04/06/2024) No family history on file. Social History Tobacco Use Smoking status: Never Smokeless tobacco: Never Substance Use Topics Alcohol use: Not Currently Comment: socially Drug use: Never ASSESSMENT/PLAN: 1. Dysuria - ICD9: 788.1, ICD10: R30.0 (primary diagnosis) - UA DIP, URINE (POC) - NITROFURANTOIN MONOHYDRATE AND MACROCRYSTAL 100 MG ORAL CAP 2. Unprotected sex - ICD9: V69.2, ICD10: Z72.51 - KEENAN/TRICHOMONAS NAAT - GONORRHEA/CHLAMYDIA NAAT - BACTERIAL VAGINOSIS NAAT Self swab If any of the swabs are positive please treat accordingly. Prescription instructions reviewed with patient as applicable. Potential red flag symptoms discussed with the patient. Reviewed appropriate action plan to take if red flag symptoms occur. Patient agreeable to treatment plan. PORFIRIO Mcintosh Brittany L, MA 04/06/2024 10:30 AM Signed Addended by: CLAUDIA HARTMAN on: 04/06/2024 10:30 AM Modules accepted: Jennifer Cloud APRN.CNP 04/06/2024 10:38 AM Signed Addended by: JENNIFER RICH on: 04/06/2024 10:38 AM Modules accepted: Orders Allergies As of Date: 04/06/2024 (No Known Allergies) Date Reviewed: 04/06/2024 Reviewed by: Claudia Hartman MA - Fully Assessed Reason for Visit: UTI [116] Primary Visit Diagnosis:Dysuria [R30.0] Other Visit Diagnosis:Unprotected sex [Z72.51] Order(s):UA DIP, URINE (POC) [[id number]] Order #: [id number]. #:[id number] KEENAN/TRICHOMONAS NAAT [SQCVTV] Order #: [id number]. #:[id number] GONORRHEA/CHLAMYDIA NAAT [SQGCCT] Order #: [id number]. #:[id number] BACTERIAL VAGINOSIS NAAT [SQBVAMP] Order #: [id number]. #:[id number] nitrofurantoin monohydrate and macrocrystal (MACROBID) 100 mg capsuleTake 1 capsule by mouth two times a day for 5 days.Disp: 10 capsuleRfl: 0 BACTERIAL CULTURE, URINE [SQURCUL] Order #: [id number]. #:[id number] Prescriptions as of 04/06/2024 - nitrofurantoin monohydrate and macrocrystal (MACROBID) 100 mg capsule Take 1 capsule by mouth two times a day for 5 days. - etonogestrel (NEXPLANON) 68 mg impl subdermal implant 68 mg by SUBDERMAL route. Problem List As Of Date: 04/06/2024 (None) Prescriptions ordered this encounter Disp Refills Start End NITROFURANTOIN MONOHYDRATE AND MACROCR* 10 c* 0 04/06/2024 04/11/2024 Route: ORAL Sig: Take 1 capsule by mouth two times a day for 5 days. Encounter Status:Closed by JENNIFER RICH on 04/06/24 Normal [facility] UA DIP, URINE (POC)on 2024 BILIRUBIN UA (POCT) Small Abnormal Negative [facility] CLARITY UA (POCT) Clear [facility] COLOR UA (POCT) Yellow [facility] GLUCOSE UA (POCT) Negative Negative mg/dL [facility] Hemoglobin Ql (U) Trace-intact Abnormal Negative [facility] Interpretation and review of laboratory results Abnormal [facility] KETONE UA (POCT) Negative Negative mg/dL [facility] LEUKOCYTES UA (POCT) Negative Negative [facility] NITRITE UA (POCT) Negative Negative [facility] PH UA (POCT) 5.5 4.5 - 8.0 [facility] Protein Ql (U) 100 mg/dL Abnormal Negative [facility] SPECIFIC GRAVITY UA (POCT) >=1.030 1.005 - 1.030 [facility] UROBILINOGEN UA (POCT) 0.2 Normal E.U./d L [facility] Location: [place], [address], [place], [address] [facility] POINT OF CARE [facility] 10-10[facility]2023 [facility] ONUREDY NNACE ([id number]) 1 F Date Time Provider Department 10/10/23 JENNIFER RICH [facility] During your visit today, we recorded the following information about you: Jennifer Rich APRN.[facility] 10/10/2023 9:33 AM Signed Please let patient know no significant bacterial growth on urine culture. If symptoms are persisting patient needs to follow-up with primary care. Zena Encinas MA 10/10/2023 11:24 AM Signed Unable to reach patient. Mailbox full/Mailbox not set up/ Number incorrect. Please try again later. BORIS Brady Alexandra, MA 10/12/2023 10:09 AM Signed No answer from patient, unable to leave VM. Left VM on spouse contact asking for patient to return call to receive results. BORIS Abdul Melissa, MA 10/13/2023 8:30 AM Signed Unable to reach patient. Mailbox full/Mailbox not set up/ Number incorrect. Please try again later. BORIS Brady Sherrie 10/13/2023 8:52 AM Signed Patient returned call, given message below with no further questions Allergies As of Date: 10/10/2023 (No Known Allergies) Date Reviewed: 10/09/2023 Reviewed by: Dayna Fernandez MA - Fully Assessed Reason for Visit: Results [95] Prescriptions as of 10/13/2023 - predniSONE (DELTASONE) 20 mg tablet Take 2 tablets by mouth once daily for 4 days. Take daily with food. - etonogestrel (NEXPLANON) 68 mg impl subdermal implant 68 mg by SUBDERMAL route. Problem List As Of Date: 10/10/2023 (None) Encounter Status:Closed by KAREN REID on 10/13/23 Normal [facility] Bacteria Ur Culton Bacteria identified Cx Nom (U) ORGANISM ID: 1 10,000 -<50,000 CFU/ml Normal urogenital nancy Normal [facility] Comment on above: Performed By: #### 6 30-4 ####[facility] [id number] [address] CNOVon 10-09-2023 [facility] EDY [facility]OH[facility] ([id number]) 1 F Date Time Provider Department 10/09/23 10:15 AM TITO CALDERON [facility] During your visit today, we recorded the following information about you: Temperature Pulse Respiration Blood pressure 97.1 degrees 85/minute 21/minute 102/66 Weight 61 kg Tito Calderon PA 10/09/2023 10:33 AM Signed This note was created using [employer]. Subjective Edy Mohr is a 18 year old female. HPI 18-year-old female presents for low back pain x 1 week. Patient states she has been having low back pain on and off for quite some time. 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 She does not recall a specific injury. She states over the past week low back pain has been worse. It is worse with moving. She states it is more on the left side than the right side. She states occasionally the pain radiates towards her left hip and leg. No numbness or tingling in the legs. No loss of bowel or bladder function. Patient states occasionally she had some burning with urination this week, so wanted to be evaluated for UTI. No blood in the urine. No vaginal discharge. No concern for or STD. She has a Nexplanon. She denies any vomiting, abdominal pain, fevers. No history of kidney stone. She has had UTIs in the past, but none recent. No other complaint. No past medical history on file. PAST SURGICAL HISTORY Procedure Laterality Date NEXPLANON INSERTION 11/04/2022 ALLERGIES Patient has no known allergies. MEDICATIONS etonogestrel (NEXPLANON) 68 mg impl subdermal implant 68 mg by SUBDERMAL route. predniSONE (DELTASONE) 20 mg tablet Take 2 tablets by mouth once daily for 4 days. Take daily with food. No family history on file. Social History Tobacco Use Smoking status: Never Smokeless tobacco: Never Substance Use Topics Alcohol use: Not Currently Comment: socially Drug use: Never Review of Systems Constitutional: Negative for chills and fever. HENT: Negative for congestion, ear pain and sore throat. Respiratory: Negative for cough and shortness of breath. Cardiovascular: Negative for chest pain. Gastrointestinal: Negative for abdominal pain, diarrhea and vomiting. Genitourinary: Positive for dysuria. Negative for urgency, vaginal bleeding, vaginal discharge and vaginal pain. Musculoskeletal: Positive for back pain. Objective BP 102/66 Pulse 85 Temp 36.2 ?C (97.1 ?F) Resp 21 Wt 61 kg (134 lb 7.7 oz) LMP 04/10/2023 (Within Days) SpO2 98% BMI 23.82 kg/m? Physical Exam Vitals and nursing note reviewed. Constitutional: General: She is not in acute distress. Appearance: Normal appearance. She is not toxic-appearing. HENT: Nose: Nose normal. Mouth/Throat: Mouth: Mucous membranes are moist. Eyes: Conjunctiva/sclera: Conjunctivae normal. Cardiovascular: Rate and Rhythm: Normal rate and regular rhythm. Pulmonary: Effort: Pulmonary effort is normal. Breath sounds: Normal breath sounds. Abdominal: General: Abdomen is flat. Palpations: Abdomen is soft. Tenderness: There is no abdominal tenderness. There is no right CVA tenderness, left CVA tenderness, guarding or rebound. Musculoskeletal: Lumbar back: Tenderness present. No bony tenderness. Normal range of motion. Negative right straight leg raise test and negative left straight leg raise test. Comments: Normal ROM lumbar spine. She does report pain with flexion and extension of the spine. No midline tenderness. Left-sided lumbar paraspinal muscle tenderness and tenderness into the left gluteus. Negative seated right leg raise. Normal sensation lower extremities. Normal gait. Skin: General: Skin is warm and dry. Neurological: Mental Status: She is alert. Assessment and Plan ASSESSMENT/PLAN: 1. Low back pain without sciatica, unspecified back pain laterality, unspecified chronicity - ICD9: 724.2, ICD10: M54.50 - UA DIP, URINE (POC)-negative. Will send urine for culture. - URINE CULTURE -Suspect musculoskeletal low back pain. -Recommend rest, ice. Patient reports has been trying Tylenol/Motrin, but do not help. -Rx for prednisone. -Follow-up if no improvement. Diagnosis and treatment plan were discussed and questions were answered to the patient's satisfaction. Pt acknowledged understanding of concepts and follow up plan. Specific signs and symptoms that would indicate the need for higher level of care were discussed in detail warranting prompt ER evaluation. CHRIS Garrett Allergies As of Date: 10/09/2023 (No Known Allergies) Date Reviewed: 10/09/2023 Reviewed by: Dayna Fernandez MA - Fully Assessed Reason for Visit: Urinary Problem [252] Cmt: Lower back pain, burning with urination x 1 week Primary Visit Diagnosis:Low back pain without sciatica, unspecified back pain laterality, unspecified chronicity [M5 (more content not included)... Normal [facility] UA DIP, URINE (POC)on 2023 BILIRUBIN UA (POCT) Negative Negative [facility] CLARITY UA (POCT) Cloudy [facility] COLOR UA (POCT) Yellow [facility] GLUCOSE UA (POCT) Negative Negative mg/dL [facility] Hemoglobin Ql (U) Negative Negative [facility] KETONE UA (POCT) Negative Negative mg/dL [facility] LEUKOCYTES UA (POCT) Negative Negative [facility] NITRITE UA (POCT) Negative Negative [facility] PH UA (POCT) 6.0 4.5 - 8.0 [facility] Protein Ql (U) Negative Negative mg/dL [facility] SPECIFIC GRAVITY UA (POCT) 1.020 1.005 - 1.030 [facility] UROBILINOGEN UA (POCT) 0.2 Normal E.U./d L [facility] Location:[facility], [address] [place] [address], [place], [place], [id number] [place] [address] POINT OF CARE [facility] US Breast - right limitedon 04-29-2023 [facility] Vital Signs Date Time Vital Sign Value Performing Clinician Facility 09-01-2024 09:30-0400 Body height 162 cm Sindhu Simon APRN.DENTAL CHAIR ASSEMBLER Work Phone: [facility] 09-01-2024 09:30-0400 Body mass index (BMI) [Ratio] 19.18 kg/m2 Sindhu Simon BROOD HATCHERY MANAGER.DENTAL CHAIR ASSEMBLER Work Phone: [facility] 09-01-2024 09:30-0400 Body weight 50.35 kg Sindhu Simon APRN.DENTAL CHAIR ASSEMBLER Work Phone: [facility] 09-01-2024 09:30-0400 Diastolic blood pressure 60 mm[Hg] Sindhu Simon APRN.DENTAL CHAIR ASSEMBLER Work Phone: [facility] 09-01-2024 09:30-0400 Systolic blood pressure 110 mm[Hg] Sindhu Simon BROOD HATCHERY MANAGER.DENTAL CHAIR ASSEMBLER Work Phone: [facility] 05-21-2024 14:39-0500 Body height 162.[address] Deepali Marrero MD Work Phone: [facility] 05-21-2024 14:39-0500 Body mass index (BMI) [Ratio] 20.8 kg/m2 Dr. Deepali Marrero MD Work Phone: [facility] 05-21-2024 14:39-0500 Body temperature 97.1 [degF] Dr. Deepali Marerro MD Work Phone: [facility] 05-21-2024 14:39-0500 Body weight 54.[address] Deepali Marrero MD Work Phone: [facility] 05-21-2024 14:39-0500 Diastolic blood pressure 54 mm[Hg] Dr. Deepali Marrero MD Work Phone: [facility] 05-21-2024 14:39-0500 Heart rate 99 /min Dr. Deepali Marrero MD Work Phone: [facility] 05-21-2024 14:39-0500 Respiratory rate 12 /min Dr. Deepali Marrero MD Work Phone: [facility] 05-21-2024 14:39-0500 SaO2% (BldA) [Mass fraction] 98 % Dr. Deepali Marrero MD Work Phone: [facility] 05-21-2024 14:39-0500 Systolic blood pressure 98 mm[Hg] Dr. Deepali Marrero MD Work Phone: [facility] 04-06-2024 09:51-0500 Body mass index (BMI) [Ratio] 21.44 kg/m2 Jennifer Rich APRN.DENTAL CHAIR ASSEMBLER Work Phone: [facility] 04-06-2024 09:51-0500 Body temperature 96.4 [degF] Jennifer Rich APRN.DENTAL CHAIR ASSEMBLER Work Phone: [facility] 04-06-2024 09:51-0500 Body weight 54.9 kg Jennifer Rich APRN.DENTAL CHAIR ASSEMBLER Work Phone: [facility] 04-06-2024 09:51-0500 Diastolic blood pressure 82 mm[Hg] Jennifer Rich APRN.DENTAL CHAIR ASSEMBLER Work Phone: [facility] 04-06-2024 09:51-0500 Heart rate 78 /min Jennifer Rich APRN.DENTAL CHAIR ASSEMBLER Work Phone: [facility] 04-06-2024 09:51-0500 Respiratory rate 16 /min Jennifer Rich APRN.DENTAL CHAIR ASSEMBLER Work Phone: [facility] 04-06-2024 09:51-0500 SaO2% (BldA) [Mass fraction] 98 % Jennifer Rich APRN.DENTAL CHAIR ASSEMBLER Work Phone: [facility] 04-06-2024 09:51-0500 Systolic blood pressure 124 mm[Hg] Jennifer Rich APRN.CNP Work Phone: [facility] 03-05-2024 08:130500 Body height 160 cm Hilario Rao MD Work Phone: [facility] 03-05-2024 08:130500 Body mass index (BMI) [Ratio] 21.89 kg/m2 Hilario Rao MD Work Phone: [facility] 03-05-2024 08:130500 Body weight 56.06 kg Hilario Rao MD Work Phone: [facility] 03-05-2024 08:13-0500 Diastolic blood pressure 74 mm[Hg] Hilario Rao MD Work Phone: [facility] 03-05-2024 08:13-0500 Systolic blood pressure 110 mm[Hg] Hilario Rao MD Work Phone: [facility] 10-09-2023 10:25-0400 Body mass index (BMI) [Ratio] 23.82 kg/m2 Krislyn Aberegg PA Work Phone: [facility] 10-09-2023 10:25-040 Body temperature 97.11 [degF] Krislyn Aberegg PA Work Phone: [facility] 10-09-2023 10:25-040 Body weight 61 kg Krislyn Aberegg PA Work Phone: [facility] 10-09-2023 10:25-0400 Diastolic blood pressure 66 mm[Hg] Krislyn Aberegg PA Work Phone: [facility] 10-09-2023 10:25-0400 Heart rate 85 /min Krislyn Aberegg PA Work Phone: [facility] 10-09-2023 10:25-0400 Respiratory rate 21 /min Krislyn Aberegg PA Work Phone: [facility] 10-09-2023 10:25-0400 SaO2% (BldA) [Mass fraction] 98 % Krislyn Aberegg PA Work Phone: [facility] 10-09-2023 10:25-0400 Systolic blood pressure 102 mm[Hg] Tito PEREZ Work Phone: [facility] 04-17-2023 10:58-0500 Body height 160 cm Chantel Taylor BROOD HATCHERY MANAGER.CNM Work Phone: [facility] 04-17-2023 10:58-0500 Body weight 60.6 kg Chantel Plotts BROOD HATCHERY MANAGER.CNM Work Phone: [facility] 04-17-2023 10:58-0500 Diastolic blood pressure 60 mm[Hg] Chantel Hutsonts BROOD HATCHERY MANAGER.CNM Work Phone: [facility] 04-17-2023 10:58-0500 Systolic blood pressure 92 mm[Hg] Chantel Hutsonts BROOD HATCHERY MANAGER.CNM Work Phone: [facility] Encounters Encounter Date Encounter Type Care Provider Facility Start: 09-03-2024 End: 09-03-2024 ambulatory SINDHU PARRISH Facility:[facility] Start: 09-02-2024 End: 09-02-2024 Follow-up encounter Sindhu Simon APRN.CNP Work Phone: OB/Gynecology Start: 09-01-2024 End: 09-01-2024 ambulatory SINDHU SIMON Facility:[facility] Start: 09-01-2024 End: 09-01-2024 Patient encounter procedure Sinhdu Simon APRN.DENTAL CHAIR ASSEMBLER Work Phone: OB/Gynecology Comment on above: Encounter for superv ision of normal first in first trimester (HCC) (Primary Dx); with uncertain dates in first trimester (HCC); 6 weeks gestation of (HCC); Screen for STD (sexually transmitted disease); Screening for cervical cancer; Depression with anxiety; Nausea and vomiting during (HCC) Start: 09-01-2024 End: 09-01-2024 ambulatory SINDHU SIMON Facility:[facility] Start: 06-02-2024 Encounter for genera l adult medical examination without abnormal findings Trino [facility] Start: 05-21-[address] Kai Marrero MD Work Phone: [facility] Start: 05-21-2024 End: 05-21-2024 Patient encounter procedure Trino PEREZ [facility] Work Phone: Start: 05-21-2024 End: 05-21-2024 ambulatory Trino Ann Facility:[facility] Start: 05-21-2024 End: 05-21-2024 ambulatory Trino Juarez Facility:[facility] Start: 04-12-2024 End: 04-12-2024 Telephone encounter Rocio Muñoz APRN.DENTAL CHAIR ASSEMBLER Work Phone: [facility] Comment on above: Results Start: 04-09-2024 End: 04-09-2024 Telephone encounter Jennifer Rich APRN.DENTAL CHAIR ASSEMBLER Work Phone: [facility] Comment on above: Results Start: 04-06-2024 End: 04-06-2024 ambulatory [facility] Facility:[facility] Start: 04-06-2024 End: 04-06-2024 Patient encounter procedure Jennifer Rich APRN.DENTAL CHAIR ASSEMBLER Work Phone: [facility] Comment on above: Dysuria (Primary Dx) ; Unprotected sex Start: 03-05-2024 End: 03-05-2024 Office outpatient new 45 minutes Hilario Rao MD Work Phone: [facility] Comment on above: Encounter for Nexpla non removal (Primary Dx) Start: 03-05-2024 End: 03-05-2024 ambulatory HILARIO [facility] Start: 10-10-2023 Telephone encounter Jennifer Rich APRN.DENTAL CHAIR ASSEMBLER Work Phone: [facility] Comment on above: Results Start: 10-09-2023 End: 10-09-2023 ambulatory [facility] Facility:[facility] Start: 10-09-2023 End: 10-09-2023 Patient encounter procedure Tito PEREZ Work Phone: [facility] Comment on above: Low back pain withou t sciatica, unspecified back pain laterality, unspecified chronicity (Primary Dx) Start: 04-29-2023 End: 04-29-2023 Subsequent hospital visit by physician [facility] Work Phone: Radiology Comment on above: Mass of upper outer quadrant of right breast [N63.11] Start: 04-17-2023 End: 04-17-2023 Patient encounter procedure Chantel Taylor APRN.JUAQUINM Work Phone: OB/Gynecology Comment on above: Mass of upper outer quadrant of right breast (Primary Dx); Mastalgia Procedures Date Procedure Procedure Detail Performing Clinician Start: 09-01-2024 Antibody screen SINDHU H JASWINDER Comment on above: Order Comment: Speci men Type: BLOOD SPECIMEN Ordering Facility: [facility] Address: [address] [place] [address] Performed By: #### T SPN #### [facility] CLIA [id number] [address] [place], [place] [address] [address] [place] Start: 09-01-2024 Us uterus limited 1/> fetuses Sindhu Simon APRN.DENTAL CHAIR ASSEMBLER Work Phone: Start: 04-06-2024 Urnls dip stick/tabl et rgnt auto w/o microscopy Jennifer Rich BROOD HATCHERY MANAGER.DENTAL CHAIR ASSEMBLER Work Phone: Start: 10-09-2023 Urnls dip stick/tabl et rgnt auto w/o microscopy Tito Calderon PA Work Phone: Start: 04-29-2023 Us breast uni real t irena with image limited Chantel Taylor BROOD HATCHERY MANAGER.CNM Work Phone: Plan of Treatment Date Care Activity Detail Author Start: 2053 Zoster Vaccines (1 of 2) Zoste r Vaccines (1 of 2) [facility] Start: 09-01-2025 GC (Gonorrhea) Scree enedina (-) GC (Gonorrhea) Screening () [facility] Start: 09-01-2025 Screening for Chlamy jarett trachomatis Chlamydia Screening () [facility] Start: 04-06-2025 GC (Gonorrhea) Ivis mcconnell (-) GC (Gonorrhea) Screening () [facility] Start: 04-06-2025 Screening for Chlamy jarett trachomatis Chlamydia Screening () [facility] Start: 02-27-2025 RSV Vaccine (1 - Ris k 1-dose series) RSV Vaccine (1 - Risk 1-dose series) [facility] Start: 11-15-2024 Influenza vaccination Influenz a Vaccine (Season Ended) [facility] Start: 09-29-2024 End: 09-29-2024 Patient encounter procedure 09/29/2024 12:50 PM EDT Routine Office Visit OB/Gynecology [address] [place] [address] Rosa Cordon MD [address] [place] [address] 1st OB - LMP 07/18/24 OB/Gynecology Comment on above: 1st OB - LMP 07/18/24 Start: 09-14-2024 End: 09-14-2024 ambulatory 09/14/2024 10:00 AM EDT Procedure OB/Gynecology [address] [place] [address] Remote, Clinical Quality Assurance Specialist [facility] [address] [place] [address] with uncertain dates in first trimester (HCC) [Z34.91] OB/Gynecology Comment on above: with uncer tain dates in first trimester (HCC) [Z34.91] Start: 09-03-2024 End: 09-03-2024 ambulatory 09/03/2024 8:45 AM EDT Results Only Jonh Telles [facility] [address] [place] [address] Jonh Sown [facility] Start: 09-02-2024 End: 12-02-2024 Choriogonadotropin.beta subunit [Units/volume] in Serum or Plasma HCG QUANTITATIVE Lab Routine with uncertain dates in first trimester (HCC) Expected: 09/02/2024, Expires: 12/02/2024 [facility] Work Phone: Comment on above: Expected: 09/02/2024 , Expires: 12/02/2024 Start: 09-01-2024 End: 12-01-2024 ANEMIA REFLEX PANEL [facility] Work Phone: Comment on above: Expected: 09/01/2024 , Expires: 12/01/2024 Start: 09-01-2024 End: 12-01-2024 Hemoglobin A1c in Blood [facility] Comment on above: Expected: 09/01/2024 , Expires: 12/01/2024 Start: 09-01-2024 End: 09-01-2025 US Pelvis PELVIC US WHI Anc Imaging Routine with uncertain dates in first trimester (HCC) Expected: 09/01/2024, Expires: 09/01/2025 [facility] Comment on above: Expected: 09/01/2024 , Expires: 09/01/2025 Start: 02-26-2024 Screening for malign ant neoplasm of cervix [facility] Start: 11-16-2023 COVID-19 Vaccine ( season) COVID-19 Vaccine ( season) [facility] Start: 11-16-2023 Influenza vaccination Influenza Vacc ine (#1) [facility] Start: 03-17-2023 Depression Assessment Depression Ass essment [facility] Start: 11-15-2022 Covid-19 Vaccine ( season) Covid-19 Vaccine ( season) [facility] Start: 11-15-2022 Influenza vaccination Influenza Vacc ine (#1) [facility] Start: 2022 Hepatitis B Vaccine (1 of 3 - 19+ 3-dose series) Hepatitis B Vaccine (1 of 3 - 19+ 3-dose series) [facility] Start: 2022 Hepatitis B Vaccines (1 of 3 - 19+ 3-dose series) Hepatitis B Vaccines (1 of 3 - 19+ 3-dose series) [facility] Start: 2022 Urine microalbumin profile DTaP,Tdap,Td Vaccine (1 - Tdap) [facility] Start: 2021 Anxiety Screening Anxiety Screening [facility] Start: 2021 Depression Screening Depression Scre ening [facility] Start: 2021 GC (Gonorrhea) Scree enedina (18-) GC (Gonorrhea) Screening () [facility] Start: 2021 Hepatitis C screening Hepatitis C Sc uvaldo [facility] Start: 2021 HIV screening HIV Screening [facility] Start: 2021 Screening for Chlamy jarett trachomatis Chlamydia Screening () [facility] Start: 2019 Meningococcal B Vacc ine (1 of 2 - Standard) Meningococcal B Vaccine (1 of 2 - Standard) [facility] Start: 2019 Meningococcal B Vacc ine: Consider Based On Risk (1 of 2 - Patient Seeks Protection) Meningococcal B Vaccine: Consider Based On Risk (1 of 2 - Patient Seeks Protection) [facility] Start: 2018 HPV Vaccine (1 - 3-d ose series) HPV Vaccine (1 - 3-dose series) [facility] Start: 2018 HPV Vaccines (1 - 3- dose series) HPV Vaccines (1 - 3-dose series) [facility] Start: 2017 Peds To Adult Transi tion Annual Assessment Peds To Adult Transition Annual Assessment [facility] Start: 02-26-2016 Varicella vaccination Varicell a Vaccines (1 of 2 - 13+ 2-dose series) [facility] Start: 2015 Peds To Adult Transi tion Initial Discussion Peds To Adult Transition Initial Discussion [facility] Start: 02-26-2012 HPV Vaccine (1 - 2-d ose series) HPV Vaccine (1 - 2-dose series) [facility] Start: 2010 DTaP/Tdap/Td Vaccine s (1 - Tdap) DTaP/Tdap/Td Vaccines (1 - Tdap) [facility] Start: 2007 Hearing Screening (#1) Hearing Scree enedina (#1) [facility] Start: 02-26-2004 MMR Vaccines (1 of 1 - Standard series) MMR Vaccines (1 of 1 - Standard series) [facility] Start: 2003 Covid-19 Vaccine (#1) Covid-19 Vacci ne (#1) [facility] Start: 2003 Hepatitis B Vaccine (1 of 3 - 3-dose series) Hepatitis B Vaccine (1 of 3 - 3-dose series) [facility] Start: 2003 HIV screening HIV Screening [facility] Start: 2003 Lipid panel Lipid Panel [facility] Start: 2003 Yearly Adult Physical Yearly Adult P [facility] Bacteria identified in Urine by Culture URINE CULTURE Microbiology Routine Low back pain without sciatica, unspecified back pain laterality, unspecified chronicity 10/09/2023 11:10 AM T [facility] Work Phone: Bacteria identified in Urine by Culture BACTERIAL CULTURE, URINE Microbiology Routine Dysuria 04/06/2024 10:56 AM EST [facility] Bacteria identified in Urine by Culture BACTERIAL CULTURE, URINE Microbiology Routine 6 weeks gestation of ([facility]) 09/01/2024 10:15 AM EDT [facility] BACTERIAL VAGINOSIS NAAT BACTERI AL VAGINOSIS NAAT Lab Routine Unprotected sex 04/06/2024 10:25 AM [facility] KEENAN/TRICHOMONAS NAAT KEENAN /TRICHOMONAS NAAT Lab Routine Unprotected sex 04/06/2024 10:25 AM [facility] Work Phone: Chlamydia trachomatis+Neisseria gonorrhoeae DNA [Presence] in Unspecified specimen by JERAD with probe detection GONORRHEA/CHLAMYDIA NAAT Lab Routine Unprotected sex 04/06/2024 10:25 AM [facility] Chlamydia trachomatis+Neisseria gonorrhoeae DNA [Presence] in Unspecified specimen by JERAD with probe detection GONORRHEA/CHLAMYDIA NAAT Lab Routine 6 weeks gestation of (HCC) 09/01/2024 10:15 AM T [facility] End: 09-01-2025 Choriogonadotropin.beta subunit [Units/volume] in Serum or Plasma HCG QUANTITATIVE Lab Routine with uncertain dates in first trimester ([facility]) 3x per week for 6 Occurrences starting 09/01/2024 until 09/01/2025, 1 completed [facility] Comment on above: 3x per week for 6 Oc currences starting 09/01/2024 until 09/01/2025, 1 completed End: 05-16-2024 [facility] Routine Mass of upper outer quadrant of right breast Mastalgia 1 Occurrences starting 04/17/2023 until 05/16/2024 [facility] Work Phone: Comment on above: 1 Occurrences starti ng 04/17/2023 until 05/16/2024 PAP TEST PAP TEST Lab Rou moni 6 weeks gestation of ([facility]) Screening for cervical cancer 09/01/2024 10:15 AM EDT [facility] TRICHOMONAS VAGINALI S NAAT TRICHOMONAS VAGINALIS NAAT Lab Routine 6 weeks gestation of ([facility]) Screen for STD (sexually transmitted disease) 09/01/2024 10:15 AM EDT [facility] End: 05-16-2024 US BREAST LTD RIGHT US BREAST LTD RIGHT Radiology Routine Mass of upper outer quadrant of right breast Mastalgia 1 Occurrences starting 04/17/2023 until 05/16/2024 [facility] Work Phone: Comment on above: 1 Occurrences starti ng 04/17/2023 until 05/16/2024 [facility] Payers Date Payer Category Payer Self-pay 2024 Blue Cross Blue Shield BLUE CARD PPO OOS [id number] 2024 Blue Cross Blue Shie ld [facility] Care [facility] [id number] 2024 Unknown [id number] 2022 Unknown THIERNO BLUE CARD PPO OOS [id number] 2022-Present [phone] [address] [place] [address] PPO [id number] 2022 Unknown [id number] 2003 Unknown [id number] Unknown [id number] Unknown [id number] Social History Date Type Detail Facility Start: 04-17-2023 [facility] Start: 04-17-2023 Tobacco use and exposure Smokeless tobacco non-user [facility] Start: 04-17-2023 End: 09-01-2024 Alcohol intake Ex-drinker (finding) [facility] Start: 03-27-2023 End: 04-17-2023 History of Social function [facility] Start: 03-27-2023 End: 04-17-2023 Tobacco use panel [facility] National Score (1-100), lower number is lower risk 90 [facility] Start: 04-17-2023 [facility] Start: 2005 Sex Assigned At Not on file [facility] Start: 03-05-2024 [facility] Work Phone: History of tobacco use Cigarette Smoker [facility] Work Phone: Start: 03-05-2024 Tobacco use and exposure User of smokeless tobacco [facility] Work Phone: Start: 03-05-2024 Alcoholic beverage intake Lifetime non-drinker (finding) [facility] Work Phone: Start: 02-24-2024 End: 03-05-2024 Exposure to SARS-CoV-2 (event) Not sure [facility] Tobacco smoking stat us NHIS Unknown if ever smoked [facility] Work Phone: Start: 06-02-2024 Sex Female (finding) [facility] Start: 2005 Sex Assigned At Female W [facility] Start: 08-01-2024 [facility] Goals Date Patient Goal Desired Activity /State Personal health goal Clinical Notes 04-17-2023 to 09-02-2024 Telephone Encounter - Mary Tamayo RN - 09/02/2024 8:30 AM EDTTelephone Encounter - Mary Tamayo RN - 09/02/2024 8:30 AM EDTPatient Sindhu Matthew APRN.DENTAL CHAIR ASSEMBLER - 09/01/2024 8:58 AM EDT Note Date & Type Note Facility 09-02-2024 Miscellaneous Notes Patient was seen in office yesterday for New OB appointment. Ultrasound scheduled for 09/14. Do you want another HCG quant ordered? hCG Quantitative, Blood (mIU/mL) Date Value 09/01/2024 15,501.0 Mary Tamayo RN documented in this encounter [facility] 09-02-2024 Telephone encounter Note Patient was seen in office yesterday for New OB appointment. Ultrasound scheduled for 09/14. Do you want another HCG quant ordered? hCG Quantitative, Blood (mIU/mL) Date Value 09/01/2024 15,501.0 Mary Tamayo RN [facility] 09-01-2024 Sindhu Laws APRN.DENTAL CHAIR ASSEMBLER - 09/01/2024 8:59 AM EDT Images from the original note were not included. Please select the following link to access the [facility] Your Guide to a Healthy . www.Ccf.org/healthypregnancyguide MORNING SICKNESS IN by Venessa Curtis M.D. for [place] As you may already know, morning sickness can often be more appropriately called evening sickness or xahdy-rylymb-nj-the-day sickness. While there are the sy few, most women (50-90%) experience some degree of nausea, some have vomiting, and a few develop a severe form of vomiting during called hyperemesis gravidarum. What causes the nausea and vomiting of ? We can't explain why some people feel fine and others are green for months. Even the same woman may feel vastly different in each . There is some relationship between nausea and the level of the hormone hCG. In twin pregnancies, and in other situations where the hCG is greater than expected, nausea and vomiting tend to be worse. In a destined for miscarriage, hCG levels tend to be low, and nausea is often less severe. This being said, a lack of nausea doesn't guarantee that the is destined for miscarriage. The fact that nausea and vomiting are often signs of a healthy can offer a silver lining in the dark cloud of miserable nausea. How long will the nausea last? Fortunately, for most women, nausea and vomiting are a first trimester event, peaking at week 9-10 and waning by week 14-16. When you are feeling bad the weeks can go by slowly but most moms do feel tremendously better by the middle of the . Whether morning sickness is a brief experience or lasts through most of the , there are treatments that can make the weeks or months more tolerable. What can you do about it? Diet: See what works for you. Try eating bland dry foods, and avoid fatty or spicy foods. It is okay to eat a less than perfectly balanced diet in the first trimester. Have your liquids separately from dry foods. Try sports drinks, water, clear juices, Quang-aid, or non-caffeinated tea. Avoid carbonated beverages that fill up your stomach. Try eating lots of little meals. If you tend to feel sick when you first wake up, leave crackers next to the bed for a quick snack before rising. Keeping healthy snacks with you all day to nibble when you feel queasy can sometimes even prevent nausea from starting. vitamins and nausea: Pre-rocío vitamins can sometimes worsen nausea in . While folate is necessary, especially early in the , it comes as a smaller pill that many people find more tolerable than the complete vitamin pill. Ask your practitioner if it is okay to temporarily replace vitamins and iron with just a folate pill if you find a significant worsening in the level of your nausea from the vitamins. Alternative therapies: Acupressure may be used to treat nausea in , and is not known to have any risks for the fetus. Wristbands (marketed for seasickness) that put pressure on an acupressure point at the wrist are often available at drugstores or travel stores. Nadine root is used for nausea in many traditional cultures. Some women take fresh grated nadine or nadine tablets. It is possible that the pill form contains other ingredients or contaminants, so you may want to try fresh nadine first. Medications: Emetrol is the only nausea medication approved for use in . It is available over the counter and is soothing to the stomach. A prescription medication called Bendectin was available in the 1970s-1979's and was shown to be safe in , but the company stopped marketing it in the [place] due to the costs of liability coverage. Bendectin contained 10 milligrams of vitamin B6 and 10 milligrams of Doxylamine. Two tablets were given at bedtime and a total of up to 4 tablets could be used in a 24-hour period. Interestingly, Unisom , which contains a higher dose (25 mg.) of the same medication, Doxylamine, is currently marketed as an brfe-jvp-rgscnvj sleeping pill. Ask your practitioner if creating a vitamin B6/Doxylamine combination with ntuc-eif-ylvudtc medications would be safe for you. Prescription medications like Compazine and Phenergan can be used if the benefits outweigh possible risks, but these have not been clearly shown to be safe in . Zofran , an expensive anti-nausea medication often used to treat nausea from chemotherapy, can also be used. Can I throw up so much it harms the baby? The act of vomiting cannot hurt your fetus, which is protected inside the uterus. If you get dehydrated or develop a metabolic imbalance, this can be unhealthy. As long as you can keep down liquids, you and your baby will generally do all right. Eat when you feel able. If you are unable to keep anything down, or if you notice potential signs of dehydration such as lightheadedness, or concentrated and/or infrequent urination, call your practitioner. Some women need brief hospital admission for intravenous fluids and anti-nausea medications if their condition becomes severe. This severe form of nausea and vomiting is called Hyperemesis Gravidarum. As with many symptoms of , remind yourself that this, too, shall pass, and you'll have a wonderful baby to show for it! TREATMENT OPTIONS, SHORT VERSION: Frequent small meals Hydrate throughout day Sea-Bands wrist pressure point applicators Nadine root (powdered, in capsules) 250mg four times a day Vitamin B6 25 mg tablet three times a day Also may be taken with half a tablet of Unisom three times a day (Doxylamine 12.5 mg) If severe (weight loss, dehydration), call us and come in for IV hydration and possible medication in the form of injections. Prescription medications such as Phenergan, Compazine, Reglan Psychotherapy Services at [facility] Call Behavioral Health Access Line at [phone] to schedule Individual psychotherapy In-person or virtual Wait time for first evaluation may be 12 or more weeks. Wait list spots may be available. Due to the high volume of patients this option is recommended if you are looking for short term acute symptom coping strategies. 0-281-8-CQZY9LIBH - [place] Maternal Mental Health Hotline If you are in suicidal crisis, please call or text 0-565-736-TALK ( ) or visit the National Suicide Prevention Lifeline website. mchb.hrsa.gov If you are in crisis, call 171 or go to your nearest Emergency Department Here are some links for wonderful Providers here in the community and surrounding areas. Do not hesitate to contact their offices, many are offering virtual visits during this time. Psychotherapy Services outside of [facility] Support International Online Provider Directory https://Starvine.Tadcast/ - can assist in finding providers in your area that might be more extensive then the list below. [facility] [place], [place] [address] [place] [address] [facility] [address] [place] [address] [facility] [address] [place] [address] [facility] [address] [place] [address] Jose Alfredo Clayton MD [address] [place] [address] [facility] [address] [facility], [address] [place] [address] [facility] Services [address] [place] [address] [facility] [place] / [place] [phone]/ [phone] Neetu Crowe [address] [facility] [address] [facility] [phone] Aves of Counseling and Mediation [place] / [place] [phone] Behavioral health services of [facility] [address] [place] [address]/ [place] [phone] SHIRAZ Nobles, [facility] Family Therapy Workshops, telehealth and at home visits. [phone] Humanistic counseling center 20 locations [facility], [place], [place], [place], [place], [place], [facility], [place], [place], [place], [place], [place], [place], [facility], [place], [place] ,[facility], [place], [place],[facility], [facility], [place], [facility], [place], [place] www.zeenworldisticcomulticare deaconess hospital[facility].co [phone] Psychotherapy resources outside of [facility] are listed below [facility] c8apps Psychotherapy Web: https://www.stylemarks/ Support International Online Provider Directory https://Immure Records/ [facility] https://insightcounsip.access.Tadcast/ Partners for Behavioral Health and Wellness Web: https://Boca Research/ Storelift for Effective Living Web: https://Iunika.effectiveCarmageddonliving.Tadcast/ LifeStance Web: https://Thermogenics.Tadcast/location/s jamal/curt/ [facility] Web: https://www.Cnano Technologyeastern [facility].or / [facility] Web: https://NewsBasis/ Recovery Resources Mental health and substance abuse help Web: https://www.dotSyntaxs.Openovate Labs & RESOURCES Support International Direct peer support and connection to professional resources Non-Emergency Helpline Phone: / Text: [phone] Web: https://www..net/ Online Provider Directory: https://Immure Records/ Online Support Meetings: https://www..net/get-he lp/esm-nfgcmf-cgrtshk-meetings/ CUAUHTEMOC Baby and Field Service Technician Poultry Services Web: https://Red Crow/ EventSorbet Expert information on medication use during and Text: [phone] Web: https://American Giant/ NATIONAL REGISTRY FOR PSYCHIATRIC MEDICATIONS Currently studying the safety of antidepressants, ADHD medications and atypical antipsychotics taken during TO PARTICIPATE CALL TOLL-FREE: Web: https://womensmentalhealth.org/re search/pregnancyregistry/ Support Groups: [facility]- Follow on facebook Baby Bistro support group led by [facility] department Resilient Mamas - Support Group [facility].org The POEM support group [phone] Www.poemonline.org Follow on facebook - EDITH bryant Online support meetings PSI https://www..net/get-he lp/smw-pdaoax-kngqiau-meetings/ [facility] mommy and me virtual support group 11:30-1pm Support for mothers and new babies and toddlers Kila childbirth education: Childbirth @cc.org or call [phone] CRISIS: CRISIS HOTLINE [phone], 911 or go to the nearest ER. [facility] [phone] / [facility] [phone] https://www.[facility] centerrb.org Crisis text line text the word HOME to 978606 [facility] [address] [facility] [phone] www.Video Furnace Leonie Cabrera clinical counseling [address] [address] www.Geniuzz [phone] Holding space psychotherapy Gail Bassett AUTOMATION SOFTWARE ENGINEER SECOND STEWARD-S [address] [facility] www.FlightCar [phone]/ [place] [phone] They all offer virtual. All work with trauma Support groups Online support meetings PSI https://www..net/get-he lp/kok-qrikmk-ieyghdg-meetings/ Here are the support groups they offer: Support of parents of 1 to 4 years old children POEM ( Outreach and Encouragement for Moms) offers free support for mothers experiencing depression, anxiety, and other mood and anxiety disorders. Masks are recommended but not required. No pre-registration required. Babies in arms welcome. meetings now take place on the and Friday of each month Location: [facility] [address] [place] [address] Room 122 (library room) 7-8:00 p.m. When you enter the [facility] parking lot off of [address], the entrance door closest to our meeting room is on the front of the building toward the right. For those who are more comfortable with a virtual platform, POEM offers online support group options several days of the week. To register for an online group or to find out more about POEM, website at: https://mhaohio.org/get-help/mate jglc-tymwis-adoexu/poem-services/ offer a confidential helpline: private Facebook group is called EDITH Bryant Here are the groups they offer: Traumatic childbirth resources: Http://pattch.org/ https://www.dkCarmageddonherbert Nomorerack.com.Tadcast/ Name Location (s) Phone # (s) Services Website [facility] Psychotherapy [address] [facility], [facility] [phone]; [address] [phone] In-Person GROUPS INDIVIDUAL THERAPY MATERNAL-INFANT MENTAL HEALTH MEDICATION MANAGEMENT PLAY AND ART THERAPY TELETHERAPY https://www.stylemarks/s samia/ Armando CEE? [address] [place], [place] [address] ? [address] [place], [place] [id number] ? [place] [address] [place] [address]? Grief Support Groups Individual Grief Counseling Spiritual Care Memorial Events https://lamont.[facility].org/grief-services [facility] [address] [place], [place] [address]; ; Email: nick@TYSON Security Women's Mental Health; Couples Counseling; Trauma (EMDR); Stress Management; Mood and Anxiety Related Disorders- and much more https://www.Bilneur Filao.Tadcast/ LifeStance Numerous as they have contract providers: access website to find specific providers near you Counseling including CBT and EMDR as well as many more modalities; Medication Management; Telehealth and In-Person https://Thermogenics.Tadcast/ Pony Zero for Behavioral Health and Wellness [address] [place] 56[address]22; [phone] Personal, Family and Group Therapy; Psychological Testing and Diagnosis; Medication Management; Life and Career Coaching; Psychoanalysis; Literacy Testing; Yoga and Meditation https://Boca Research/ Fit [facility] [place] [address] [facility] [address], [place] [address] [address] ; [address] [place] [address]; Office # for both sites: Individual and Couples Counseling https://www.[facility].Tadcast/ paymentinsurance.html OCD & Anxiety Center [facility] [address], [place] [address]; Specialize in Cognitive-Behavioral Therapy (CBT) for the treatment of anxiety disorders across the lifespan. TELEHEALTH ONLY. https://ocdandanxietycenterolev PPLCONNECT/faqs [facility] [address] [place], [address] [place] [address] [facility] [place], [address] [place] [address] [facility] [place] [address] [place] [address] [place], [address], [address] [place] [address] [place] [address]. [place], [address] [place] [address] [place], [address] Transportation Services To minimize patient barriers, [facility] provides transportation services to patients who qualify. If you are unable to get to your appointment at any of our facilities, please let us know. Need help now? Stop by one of our walk-in clinics to establish behavioral health care. Counseling Indvidual, Group, Couples and Family Counseling and EMDR. Medication Management Case Management benefits applications housing assistance Substance abuse treatment Medication assisted treatment https://www.[facility].or g/mental-health/ [facility] OFFICE AT [facility] [address] [place] [address] [facility] OFFICE [address] [place] [address] [facility] OFFICE [address] [place], [place] [id number] [facility] OFF[facility] (at [facility]) [address] [place] [address] [facility] SYRINGE EXCHANGE PROGRAM & HIV SCREENING [address] [place] [address] [place] EXCHANGE PROGRAM [address] [place] [address] Behavioral Health Urgent Care: [facility] Counseling Indvidual and Group Medication Management Case Management benefits applications housing assistance Substance abuse treatment Medication assisted treatment Employment Services/ Job Training https://StorageByMail.com.org/ Recovery Resources [address] [place], [place] [address]: P: [phone] [address] [facility], [address], [place], [place] [address] P: [phone] Our services include: Addiction Mental Health Treatment Assessment Psychiatry Medical Care Employment Housing Drug and Alcohol Prevention HIV/AIDS Prevention https://www.dotSyntaxs.org/ [facility] [place] [address] [place] [address] [address] [place], [place] [address] [place] [address] [place] [address] [place] [address] [facility] [address] [place] [address] [place] [address] [place] [address] TMS Therapy/ Counseling Psychocological Testing for ADHD Medication Management In-Person/ Telemedicine https://www.MumsWay/chandni ents-depression Memory & Psychological services [address], [place] [address] Neuropsychological Testing For ADHD https://www.memoryandpsych.com/ [facility] Office [address] [place] [address] [address] Providing gqmh-uz-avoa and telehealth services. Adult Case Management Community Education and Prevention Employment Outpatient Treatment - Counseling & Psychotherapy Psychiatric Services http://www.ccwhc.org/ [facility] [place] [address] [place] [address] [facility] [address] [place] [address] Virtual Appointments! Now offering safe and convenient virtual client appointments to anyone in [place]! Individual Therapy Couples/Relationship Therapy Trauma/EMDR Therapy Art Therapy Play Therapy Ammunition Specialist Support: Parenting Skills, Parent Child Interaction Therapy, Parent Interaction Therapy Meditation Dietitian/Meter Maintenance Person Services Group Therapy Yoga https://www.TAPTAP Networks/ [place] Campos [phone] Private Practice: Telehealth Only Specializes in EMDR for Trauma None documented in this encounter [facility] 09-01-2024 Note HNO ID: [id number] Author: SINDHU SIMON APRN.ANGELES Service: ? Author Type: Nurse Practitioner Type: Progress Notes Filed: 09/01/2024 10:36 Note Text: Chief Relay Tester offered: Patient declines. INITIAL OB ASSESSMENT HPI: Edy is a 19 year old White here to establish Obstetrical Care. Patient's last menstrual period was 07/18/2024. from OB Dating Form. was planned Complaints: No OB History Gravida1 Para0 Term0 Preterm0 AB0 Living0 SAB0 IAB0 Ectopic0 Multiple0 Live Births0 Previous history: Prior : never History of 4th degree laceration: NA History of shoulder dystocia: No History of Hypertensive disorders including pre-eclampsia or gestational hypertension: NA History of gestational diabetes: NA Patient's Risk Screening for delivery: Have you had a prior márquez between 20w and 36w6d? No How many pregnancies have you had before? 0 Did you have a previous baby with a GBS Infection? No Please select all that apply for any prior : N/A MEDICAL/PSYCHOSOCIAL HISTORY: History of hemorrhage or bleeding concerns: No Thyroid Disease: No History of chronic hypertension: No History of pre-existing diabetes: No No results found for: ABORHD BMI 19.18 kg/(m2) Last Pap: never done History of abnormal pap: No Prior treatment for cervical dysplasia: none. Last HPV: never done History of STDs: None Partner History of STDs: None Did you have a partner with Herpes? No Tobacco use: No E-Cigarette/Vaping Use: No Caffeine use: No Drug use: No Alcohol use: No Multivitamin with Folic acid: unsure Would refuse blood transfusion if medically necessary: No Social Needs: How often does this describe you? I don't have enough money to pay my bills: Never Within the past 12 months, have you worried that your food would run out before you had money to buy more? Never In the past 12 months, has lack of reliable transportation kept you from going to medical appointments or work, or from getting things needed for daily living? Never In the past 12 months, have you had any concerns about having a place to live, or about the condition or quality of your housing? Never Would you like more information on any of the following (please check all that apply)? Not interested Social History: Do you have any history of depression, anxiety, PTSD, or other mood problems? Yes , anxiety Do you have a history of abuse or trauma that may impact your experience? No Are you currently employed? Yes Depression/Anxiety Screening: denies symptoms of depression. OB Depression and Anxiety Screening- This Encounter Feeling down, depressed, or hopeless: Not at all Little interest or pleasure in doing things: Several days Feeling nervous, anxious, or on edge Nearly Everyday Not being able to stop or control worrying Several days Anxiety Pre-Screening Total (If >/= 3 additional questions will be reviewed) 4 Worrying too much about different things Several days Trouble relaxing Not at all Being so restless that it is hard to sit still Not at all Becoming easily annoyed or irritable Nearly Everyday Feeling afraid, as if something awful might happen Several days How difficult to do work, care for home, get along with people Not difficult at all ÁLVARO-7 Score 9 Genetic Screening: Partner present: No Patient verbalized knowledge of partner family health history: Yes Do you or your partner have any personal or family history of defects not previously discussed: No Do you have history of a complicated by anomaly, genetic condition, or demise: No Preeclampsia Risk Screening: Screening for prevention of preeclampsia: High risk factors: None Moderate risk ractors: Nulliparity OB Risk Screening: Completed, no positive findings documented. Marital Status: Partner: Name: Ko Age: 22 Occupation: Maintance Gender: Male History reviewed. No pertinent past medical history. PAST SURGICAL HISTORY Procedure Laterality Date NEXPLANON INSERTION 11/04/2022 Current Outpatient Medications Medication Sig Dispense Refill PNV no.95/ferrous fum/folic ac ( ORAL) Take by mouth. etonogestrel (NEXPLANON) 68 mg impl subdermal implant 68 mg by SUBDERMAL route. (Patient not taking: Reported on 04/06/2024) No current facility-administered medications for this visit. Allergies As of Date: 09/01/2024 (No Known Allergies) Fully Assessed 09/01/2024 Does patient have penicillin allergy: No REVIEW OF SYSTEMS: GENERAL: Negative for: Fever or Chills HEENT: Negative for: Headache, Impaired Vision, Ringing in Ears, Nosebleeds NECK: Negative for: Swelling, Pain, Stiffness RESPIRATORY: Negative for: Cough, Shortness of breath, Wheezing GASTROINTESTINAL: Negative for: Heartburn, Constipation, Diarrhea, Blood in stool + nausea MUSCULOSKELETAL: Negative f (more content not included)... [facility] 09-01-2024 History of Present illness Narrative Chief Relay Tester offered: Patient declines. INITIAL OB ASSESSMENT HPI: Edy is a 19 year old White here to establish Obstetrical Care. Patient's last menstrual period was 07/18/2024. from OB Dating Form. was planned Complaints: No OB History Gravida1 Para0 Term0 Preterm0 AB0 Living0 SAB0 IAB0 Ectopic0 Multiple0 Live Births0 Previous history: Prior : never History of 4th degree laceration: NA History of shoulder dystocia: No History of Hypertensive disorders including pre-eclampsia or gestational hypertension: NA History of gestational diabetes: NA Patient's Risk Screening for delivery: Have you had a prior márquez between 20w and 36w6d? No How many pregnancies have you had before? 0 Did you have a previous baby with a GBS Infection? No Please select all that apply for any prior : N/A MEDICAL/PSYCHOSOCIAL HISTORY: History of hemorrhage or bleeding concerns: No Thyroid Disease: No History of chronic hypertension: No History of pre-existing diabetes: No No results found for: ABORHD BMI 19.18 kg/(m^2) Last Pap: never done History of abnormal pap: No Prior treatment for cervical dysplasia: none. Last HPV: never done History of STDs: None Partner History of STDs: None Did you have a partner with Herpes? No Tobacco use: No E-Cigarette/Vaping Use: No Caffeine use: No Drug use: No Alcohol use: No Multivitamin with Folic acid: unsure Would refuse blood transfusion if medically necessary: No Social Needs: How often does this describe you? I don't have enough money to pay my bills: Never Within the past 12 months, have you worried that your food would run out before you had money to buy more? Never In the past 12 months, has lack of reliable transportation kept you from going to medical appointments or work, or from getting things needed for daily living? Never In the past 12 months, have you had any concerns about having a place to live, or about the condition or quality of your housing? Never Would you like more information on any of the following (please check all that apply)? Not interested Social History: Do you have any history of depression, anxiety, PTSD, or other mood problems? Yes , anxiety Do you have a history of abuse or trauma that may impact your experience? No Are you currently employed? Yes Depression/Anxiety Screening: denies symptoms of depression. OB Depression and Anxiety Screening- This Encounter Feeling down, depressed, or hopeless: Not at all Little interest or pleasure in doing things: Several days Feeling nervous, anxious, or on edge Nearly Everyday Not being able to stop or control worrying Several days Anxiety Pre-Screening Total (If >/= 3 additional questions will be reviewed) 4 Worrying too much about different things Several days Trouble relaxing Not at all Being so restless that it is hard to sit still Not at all Becoming easily annoyed or irritable Nearly Everyday Feeling afraid, as if something awful might happen Several days How difficult to do work, care for home, get along with people Not difficult at all ÁLVARO-7 Score 9 Genetic Screening: Partner present: No Patient verbalized knowledge of partner family health history: Yes Do you or your partner have any personal or family history of defects not previously discussed: No Do you have history of a complicated by anomaly, genetic condition, or demise: No Preeclampsia Risk Screening: Screening for prevention of preeclampsia: High risk factors: None Moderate risk ractors: Nulliparity OB Risk Screening: Completed, no positive findings documented. Marital Status: Partner: Name: Ko Age: 22 Occupation: Maintance Gender: Male History reviewed. No pertinent past medical history. PAST SURGICAL HISTORY Procedure Laterality Date NEXPLANON INSERTION 11/04/2022 Current Outpatient Medications Medication Sig Dispense Refill PNV no.95/ferrous fum/folic ac ( ORAL) Take by mouth. etonogestrel (NEXPLANON) 68 mg impl subdermal implant 68 mg by SUBDERMAL route. (Patient not taking: Reported on 04/06/2024) No current facility-administered medications for this visit. Allergies As of Date: 09/01/2024 (No Known Allergies) Fully Assessed 09/01/2024 Does patient have penicillin allergy: No REVIEW OF SYSTEMS: GENERAL: Negative for: Fever or Chills HEENT: Negative for: Headache, Impaired Vision, Ringing in Ears, Nosebleeds NECK: Negative for: Swelling, Pain, Stiffness RESPIRATORY: Negative for: Cough, Shortness of breath, Wheezing GASTROINTESTINAL: Negative for: Heartburn, Constipation, Diarrhea, Blood in stool + nausea MUSCULOSKELETAL: Negative for: Muscle or joint pain, stiffness, Joint swelling NEUROLOGIC/PSYCHIATRIC: Negative for: Weakness, Paralysis, Numbness, Tingling, Tremor, Memory loss + depression/anxiety SKIN: Negative for: Rash, Itching GENITOURINARY: Negative for: vaginal itching, vaginal discharge, hematuria or dysuria SENSITIVE EXAM: The sensitive examination was discussed with the Patient or Patient's Authorized Service Center Assistant. As applicable, any other physician, advance practice provider, medical student, or other health professional student that will be observing or involved in the sensitive examination for educational or training purposes was discussed with the Patient or Authorized Service Center Assistant. The Patient or Authorized Service Center Assistant has agreed to proceed with the sensitive examination. (Sensitive examination includes inspection and/or palpation of the breasts, pelvis, prostate and anorectal regions). PHYSICAL EXAM: BP 110/60 Ht 5' 3.78 (1.62m) Wt 111 lb (50.3kg) LMP 07/18/2024 BMI 19.18 kg/(m^2). GENERAL: pleasant in no apparent distress DERMATOLOGY: Normal, without lesions, non-icteric, and non-hirsute NECK: Supple, full range of motion, no adenopathy, and thyroid normal CHEST: Normal inspiratory effort BREAST: soft, non-tender, symmetric, no dominant mass, normal nipple-areolar complex, no lymphadenopathy, and no nipple discharge ABDOMEN: soft, non-tender, and no masses NEURO: alert and oriented x3,exam grossly non-focal PELVIS: External genitalia normal without lesions. Perineal body intact. No vaginal or cervical lesions. Cervix closed. Uterus <8 week size. No adnexal masses or tenderness. Clinical Pelvimetry: Pelvimetry clinically assessed as adequate Limited OB ultrasound exam: single intrauterine with yolk sac present. Possible pole. ASSESSMENT: 19 year old at 6w3d wks gestational age PLAN: 1) Patient oriented to practice. Patient given new OB orientation folder. Discussed nutrition, folic acid supplementation, dietary guidelines, exercise, smoking, alcohol, caffeine, and drug use. Discussed gestational weight gain guidelines. Discussed routine OB labs including STD/HIV. Discussed how to access Your guide to a health and the Warehouse General Laborer. Discussed hemoglobin electrophoresis. Patient: Declines Reviewed midwifery and normalizer services that are available. 2) Screening: Hemoglobin A1C: ordered Baby Aspirin: The patient has been counseled about the potential benefits of low dose aspirin in and our recommendation that this be offered to all patients, regardless of whether they meet the high risk criteria specified above. She Accepts Aneuploidy Screening: Discussed aneuploidy screening, nuchal translucency/first trimester early anatomy ultrasound and NIPT. The risks/benefits and limitations of NIPT/aneuploidy screening were reviewed including the potential for false negative and false positive results. The availability of genetic counseling was reviewed. Information on aneuploidy screening was provided. The patient chooses to proceed with First trimester early anatomy ultrasound (12-13w6d) Myriad Carrier Screening: Discussed myriad carrier screening. We discussed the availability of professional-society guided carrier screening and reviewed the conditions screened and limitations of screening. The availability of genetic counseling was reviewed. Information on carrier screening was provided. The patient Declines 3) Patient offered option of Virtual Visits. Patient unsure. May consider in future. ACTIVE PROBLEM LIST Encounter for Supervision of Normal First in First Trimester ([facility]) - 09/01/2024 Comment: Care Checklist Vaccines: [] Flu vaccine [] declined [] RSV vaccine 32 0/7 - 36 6/7 (Nov - Apr) [] declined [] COVID vaccine [] declined [] TDaP 27-36 [] declined First trimester: [x] Dating US [x] 1st tri labs [] Pap smear [] Carrier screening [x] declined [] NIPT screening - considering [] declined [] First trimester anatomy scan [] declined [x] universal ASA ordered (start 12w-16w) [] declined [] M Power Consult [] not indicated [] declined Second trimester: [] Anatomy scan [] Mode of Delivery - [] Feeding - [] Pump ordered [] Diabetes screen [] CBC, RPR [] Behavioral Health Screening Third trimester (28-30 weeks): [] Consent [] Contraception [] Transit Clerk, car seat, safe sleep [] TeamBirth handout Third trimester (36-40 weeks): [] GBS [] Presentation - [] Scheduled [] yes - Hibiclens, pre-op instructions, CBC, T&S ordered [] no [] H&P [] Preferenc With Uncertain Dates in First Trimester ([facility]) - 09/01/2024 Comment: September 01, 2024 Intrauterine GS with YS noted on POCUS. Serial HCG ordered and formal dating. Bleeding and pain precautions reviewed. Sindhu Simon APRN.CNP Nausea and Vomiting During ([facility]) - 09/01/2024 Comment: 09/01/24 Vitamin B6 and Unisom doses reviewed. To notify if prescription is needed. Sindhu Simon APRN.CNP Depression With Anxiety - 09/01/2024 Comment: September 01, 2024 ÁLVARO score 9. Has never been on medication. Denies thoughts of self harm. [facility] consult placed. Mental health resources provided. Sindhu Simon APRN.DENTAL CHAIR ASSEMBLER Follow up in 1 weeks or sooner prn. Needs dating and serial HCG. Sindhu Simon APRN.DENTAL CHAIR ASSEMBLER documented in this encounter [facility] 05-21-2024 Evaluation note Diagnosis Onset Date Resolution Physical exam, pre-employment acute May 21, 2024 2:31pm [facility] Work Phone: 1(917) 256-896401-27-2025 Telephone encounter Note* Telephone Encounter - Karen Howard LPN - 04/12/2024 12:55 PM EST Patient notified.Karen Howard LPN [facility]01-27-2025 Miscellaneous Notes* Telephone Encounter - Karen Howard LPN - 04/12/2024 12:55 PM EST Patient notified.Karen Howard LPN * Telephone Encounter - Rocio Muñoz APRN.CNP - 04/12/2024 9:54 AM EST Images from the original note were not included. Please reach out and advise patient of following. documented in [facility] encounter[facility] Telephone encounter Note * Telephone Encounter - Rocio Muñoz APRN.CNP - 04/12/2024 9:54 AM EST Images from the original note were not included. Please reach out and advise patient of following. [facility] Work Phone: [phone]) 132-143701-24-2025 Telephone encounter Note* Telephone Encounter - Claudia Hartman MA - 04/09/2024 8:37 AM EST Patient active MyChart. Patient notified via mCASH message. Claudia Hartman MA [facility]01-24-2025 Miscellaneous Notes* Telephone Encounter - Claudia Hartman MA - 04/09/2024 8:37 AM EST Patient active MyChart. Patient notified via mCASH message. Claudia Hartman MA * Telephone Encounter - Jennifer Rich APRN.CNP - 04/09/2024 8:30 AM EST According to culture patient is on the correct antibiotic. Please let patient know if signs and symptoms are not improving she needs to follow-up with primary care. documented in [facility] encounter[facility] Telephone encounter Note * Telephone Encounter - Jennifer Rich APRN.CNP - 04/09/2024 8:30 AM EST According to culture patient is on the correct antibiotic. Please let patient know if signs and symptoms are not improving she needs to follow-up with primary care. [facility]01-21-2025 Note* Addendum Note - Jennifer Rich APRN.CNP - 04/06/2024 10:38 AM ESTAddended by: JENNIFER RICH on: 04/06/2024 10:38 AM Modules accepted: Orders [facility]01-21-2025 Miscellaneous Notes* Addendum Note - Jennifer Rich APRN.CNP - 04/06/2024 10:38 AM ESTAddended by: JENNIFER RICH on: 04/06/2024 10:38 AM Modules accepted: Orders * Addendum Note - Claudia Hartman MA - 04/06/2024 10:30 AM ESTAddended by: CLAUDIA HARTMAN on: 04/06/2024 10:30 AM Modules accepted: Orders documented in this encounterUniversity [facility]01-[facility]-2025 Note* Addendum Note - Claudia Hartman MA - 04/06/2024 10:30 AM ESTAddended by: CLAUDIA HARTMAN on: 04/06/2024 10:30 AM Modules accepted: Orders [facility]01-21-2025 NoteHNO ID: [id number] Author: JENNIFER RICH APRN.DENTAL CHAIR ASSEMBLER Service: ? Author Type: Nurse Practitioner Type: Progress Notes Filed: 04/06/2024 10:16 Note Text: CC: Patient presents with: UTI HPI Edy Mohr is a 19 year old female who presents with complaint of possible UTI. These symptoms have been present for 2 days. Associated symptoms: burning and urgency Denies: fever, chills, sweats, abdominal pain, and flank pain Treatments: nothing The ROS was otherwise negative. PMH, Medications, labs, allergies, and recent past visits with PCP were reviewed and updated as able. PHYSICAL EXAM: BP 124/82 Pulse 78 Temp (!) 35.8 ?C (96.4 ?F) (Left Tympanic) Resp 16 Wt 54.9 kg (121 lb 0.5 oz) LMP 03/13/2024 (Within Days) SpO2 98% BMI 21.44 kg/m? General: Well appearing and alert CV: Regular rate and rhythm without obvious murmur Lungs: clear to auscultation bilaterally Back: straight and symmetric Abdomen: soft, nontender, nondistended No past medical history on file. PAST SURGICAL HISTORY Procedure Laterality Date NEXPLANON INSERTION 11/04/2022 ALLERGIES Patient has no known allergies. MEDICATIONS nitrofurantoin monohydrate and macrocrystal (MACROBID) 100 mg capsule Take 1 capsule by mouth two times a day for 5 days. etonogestrel (NEXPLANON) 68 mg impl subdermal implant 68 mg by SUBDERMAL route. (Patient not taking: Reported on 04/06/2024) No family history on file. Social History Tobacco Use Smoking status: Never Smokeless tobacco: Never Substance Use Topics Alcohol use: Not Currently Comment: socially Drug use: Never ASSESSMENT/PLAN: 1. Dysuria - ICD9: 788.1, ICD10: R30.0 (primary diagnosis) - UA DIP, URINE (POC) - NITROFURANTOIN MONOHYDRATE AND MACROCRYSTAL 100 MG ORAL CAP 2. Unprotected sex - ICD9: V69.2, ICD10: Z72.51 - KEENAN/TRICHOMONAS NAAT - GONORRHEA/CHLAMYDIA NAAT - BACTERIAL VAGINOSIS NAAT Self swab If any of the swabs are positive please treat accordingly. Prescription instructions reviewed with patient as applicable. Potential red flag symptoms discussed with the patient. Reviewed appropriate action plan to take if red flag symptoms occur. Patient agreeable to treatment plan. Jennifer Rich APRN.[facility]01-21-2025 History of Present illness Narrative* Jennifer Rich APRN.[facility] - 04/06/2024 9:58 AM EST CC: Patient presents with: UTI HPI Edy Mohr is a 19 year old female who presents with complaint of possible UTI. These symptomshave been present for 2 days. Associated symptoms: burning and urgency Denies: fever, chills, sweats, abdominal pain, and flank pain Treatments: nothing The ROS was otherwise negative. PMH, Medications, labs, allergies, and recent past visits with PCP were reviewed and updated as able. PHYSICAL EXAM: BP 124/82 Pulse 78 Temp (!) 35.8 C (96.4 F) (Left Tympanic) Resp 16 Wt 54.9 kg (121 lb 0.5 oz) LMP 03/13/2024 (Within Days) SpO2 98% BMI 21.44 kg/m General: Well appearing and alert CV: Regular rate and rhythm without obvious murmur Lungs: clear to auscultation bilaterally Back: straight and symmetric Abdomen: soft, nontender, nondistended No past medical history on file. PAST SURGICAL HISTORY Procedure Laterality Date NEXPLANON INSERTION 11/04/2022 ALLERGIES Patient has no known allergies. MEDICATIONS nitrofurantoin monohydrate and macrocrystal (MACROBID) 100 mg capsule Take 1 capsule by mouth two times a day for 5 days. etonogestrel (NEXPLANON) 68 mg impl subdermal implant 68 mg by SUBDERMAL route. (Patient not taking: Reported on 04/06/2024) No family history on file. Social History Tobacco Use Smoking status: Never Smokeless tobacco: Never Substance Use Topics Alcohol use: Not Currently Comment: socially Drug use: Never ASSESSMENT/PLAN: 1. Dysuria - ICD9: 788.1, ICD10: R30.0 (primary diagnosis) - UA DIP, URINE (POC) - NITROFURANTOIN MONOHYDRATE & MACROCRYSTAL 100 MG ORAL CAP 2. Unprotected sex - ICD9: V69.2, ICD10: Z72.51 - KEENAN/TRICHOMONAS NAAT - GONORRHEA/CHLAMYDIA NAAT - BACTERIAL VAGINOSIS NAAT Self swab If any of the swabs are positive please treat accordingly. Prescription instructions reviewed with patient as applicable. Potential red flag symptoms discussed with the patient. Reviewed appropriate action plan to take if red flag symptoms occur. Patient agreeable to treatment plan. Jennifer Rich APRN.[facility] documented in [facility] encounter[facility] History of Present illness Narrative* Hilario Rao MD - 03/05/2024 8:00 AM EST Edy Mohr is a 19 y.o. year old female patient. PCP = Jacki Leon APRN-[facility] No chief complaint on file. HPI Presents for removal of the Nexplanon. She had the Nexplanon placed on November 04, 2022. She states that since having the Nexplanon she will have irregular vaginal bleeding approximately twice a month. She request to have the Nexplanon removed. She states that the Nexplanon is in her left inner arm. OB History 0 Para 0 Term 0 0 AB 0 Living 0 SAB 0 IAB 0 Ectopic 0 Multiple 0 Live Births 0 History reviewed. No pertinent past medical history. Past Surgical History: Procedure Laterality Date OTHER SURGICAL HISTORY 02/23/2019 No history of surgery Review of Systems: Constitutional: No fever or chills Respiratory: No shortness of breath, or cough Cardiovascular: No chest pain or syncope Breasts: No breast pain, no masses, no nipple discharge Gastrointestinal: No nausea, vomiting, or diarrhea, no abdominal pain Genitourinary: No dysuria or frequency Gynecology: Negative except as noted in history of present illness All other: All other systems reviewed and negative for complaint Medication Documentation Review Audit Reviewed by Nadya Canada on 03/05/24 at 0826 Medication Order Taking? Sig Documenting Provider Last Dose Status No Medications to Display BP 110/74 Ht 1.6 m (5' 3) Wt 56.1 kg (123 lb 9.6 oz) LMP (LMP Unknown) Comment: multiple periods a month (nexplanon) BMI 21.89 kg/m PHYSICAL EXAMINATION: Well-developed, well nourished, in no acute distress, alert and oriented x three, is pleasant and cooperative. HEENT: Clear. Pupils equal, round and reactive to light and accommodation. Extraocular muscles are intact. Oral mucosa pink without exudate. NECK: No lymphadenopathy, no thyromegaly. LUNGS: Clear bilaterally. HEART: Regular rate and rhythm without murmurs. ABDOMEN: Normoactive bowel sounds, soft and nontender, no guarding or rebound tenderness, no CVA tenderness. EXTREMITIES: No clubbing, cyanosis or edema. Nexplanon was identified in the left inner arm. The distal end of the Nexplanon was identified and the skin was locally infiltrated with 1% lidocaine. Theskin was prepped and draped usual sterile fashion. A stab wound incision was made just distal of the Nexplanon implant. The implant was removed intact. Steri-Strips were applied to the incision site and gauze wrap was then applied. Patient tolerated the procedure well. NEUROLOGIC: Cranial nerves II-XII grossly intact. Problem List Items Addressed This Visit None Visit Diagnoses Encounter for Nexplanon removal - Primary Relevant Medications lidocaine (Xylocaine) 10 mg/mL (1 %) injection 1 mL (Completed) (Start on 03/05/2024 9:15 AM) Provider Impression: 1. Nexplanon removal. Patient instructed to keep the insertion site clean and dry. May remove the gauze wrap in 5 days and the Steri-strips in 7 days. Patient will be using condoms for contraception. Follow up in 6 monthsfor annual exam. [facility]: 1(862) 207-413707-29-2024 Telephone encounter Note* Telephone Encounter - Karen Reid - 10/13/2023 8:51 AM EDT Patient returned call, given message below with no further questions [facility]07-29-2024 Miscellaneous Notes* Telephone Encounter - Karen Reid - 10/13/2023 8:51 AM EDT Patient returned call, given message below with no further questions * Telephone Encounter - Zena Encinas MA - 10/13/2023 8:30 AM EDT Unable to reach patient. Mailbox full/Mailbox not set up/ Number incorrect. Please try again later. Zena Encinas MA * Telephone Encounter - Rohini Garcia MA - 10/12/2023 10:07 AM EDT No answer from patient, unable to leave VM. Left VM on spouse contact asking for patient to return call to receive results. Rohini Garcia MA * Telephone Encounter - Zena Encinas MA - 10/10/2023 11:24 AM EDT Unable to reach patient. Mailbox full/Mailbox not set up/ Number incorrect. Please try again later. Zena Encinas MA * Telephone Encounter - Jennifer Rich APRN.CNP - 10/10/2023 9:33 AM EDT Please let patient know no significant bacterial growth on urine culture. If symptoms are persisting patient needs to follow-up with primary care. documented in [facility] Telephone encounter Note * Telephone Encounter - Zena Encinas MA - 10/13/2023 8:30 AM EDT Unable to reach patient. Mailbox full/Mailbox not set up/ Number incorrect. Please try again later. Zena Encinas MA [facility]07-28-[facility]24 Telephone encounter Note* Telephone Encounter - Rohini Garcia MA - 10/12/2023 10:07 AM EDT No answer from patient, unable to leave VM. Left VM on spouse contact asking for patient to return call to receive results. Rohini Garcia MA [facility]07-26-2024 Telephone encounter Note* Telephone Encounter - Zena Encinas MA - 10/10/2023 11:24 AM EDT Unable to reach patient. Mailbox full/Mailbox not set up/ Number incorrect. Please try again later. Zena Encinas MA [facility]07-26-[facility]24 Telephone encounter Note* Telephone Encounter - Jennifer Rich APRN.CNP - 10/10/2023 9:33 AM EDT Please let patient know no significant bacterial growth on urine culture. If symptoms are persisting patient needs to follow-up with primary care. [facility] Work Phone: [phone]) 555-538407-25-2024 NoteHNO ID: [id number] Author: TITO CALDERON PA Service: ? Author Type: Physician Glue Mill Operator Type: Progress Notes Filed: 10/09/2023 10:33 Note Text: This note was created using THUBITriter. Subjective Edy Mohr is a 18 year old female. HPI 18-year-old female presents for low back pain x 1 week. Patient states she has been having low back pain on and off for quite some time. 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 She does not recall a specific injury. She states over the past week low back pain has been worse. It is worse with moving. She states it is more on the left side than the right side. She states occasionally the pain radiates towards her left hip and leg. No numbness or tingling in the legs. No loss of bowel or bladder function. Patient states occasionally she had some burning with urination this week, so wanted to be evaluated for UTI. No blood in the urine. No vaginal discharge. No concern for or STD. She has a Nexplanon. She denies any vomiting, abdominal pain, fevers. No history of kidney stone. She has had UTIs in the past, but none recent. No other complaint. No past medical history on file. PAST SURGICAL HISTORY Procedure Laterality Date NEXPLANON INSERTION 11/04/2022 ALLERGIES Patient has no known allergies. MEDICATIONS etonogestrel (NEXPLANON) 68 mg impl subdermal implant 68 mg by SUBDERMAL route. predniSONE (DELTASONE) 20 mg tablet Take 2 tablets by mouth once daily for 4 days. Take daily with food. No family history on file. Social History Tobacco Use Smoking status: Never Smokeless tobacco: Never Substance Use Topics Alcohol use: Not Currently Comment: socially Drug use: Never Review of Systems Constitutional: Negative for chills and fever. HENT: Negative for congestion, ear pain and sore throat. Respiratory: Negative for cough and shortness of breath. Cardiovascular: Negative for chest pain. Gastrointestinal: Negative for abdominal pain, diarrhea and vomiting. Genitourinary: Positive for dysuria. Negative for urgency, vaginal bleeding, vaginal discharge and vaginal pain. Musculoskeletal: Positive for back pain. Objective BP 102/66 Pulse 85 Temp 36.2 ?C (97.1 ?F) Resp 21 Wt 61 kg (134 lb 7.7 oz) LMP 04/10/2023 (Within Days) SpO2 98% BMI 23.82 kg/m? Physical Exam Vitals and nursing note reviewed. Constitutional: General: She is not in acute distress. Appearance: Normal appearance. She is not toxic-appearing. HENT: Nose: Nose normal. Mouth/Throat: Mouth: Mucous membranes are moist. Eyes: Conjunctiva/sclera: Conjunctivae normal. Cardiovascular: Rate and Rhythm: Normal rate and regular rhythm. Pulmonary: Effort: Pulmonary effort is normal. Breath sounds: Normal breath sounds. Abdominal: General: Abdomen is flat. Palpations: Abdomen is soft. Tenderness: There is no abdominal tenderness. There is no right CVA tenderness, left CVA tenderness, guarding or rebound. Musculoskeletal: Lumbar back: Tenderness present. No bony tenderness. Normal range of motion. Negative right straight leg raise test and negative left straight leg raise test. Comments: Normal ROM lumbar spine. She does report pain with flexion and extension of the spine. No midline tenderness. Left-sided lumbar paraspinal muscle tenderness and tenderness into the left gluteus. Negative seated right leg raise. Normal sensation lower extremities. Normal gait. Skin: General: Skin is warm and dry. Neurological: Mental Status: She is alert. Assessment and Plan ASSESSMENT/PLAN: 1. Low back pain without sciatica, unspecified back pain laterality, unspecified chronicity - ICD9: 724.2, ICD10: M54.50 - UA DIP, URINE (POC)-negative. Will send urine for culture. - URINE CULTURE -Suspect musculoskeletal low back pain. -Recommend rest, ice. Patient reports has been trying Tylenol/Motrin, but do not help. -Rx for prednisone. -Follow-up if no improvement. Diagnosis and treatment plan were discussed and questions were answered to the patient's satisfaction. Pt acknowledged understanding of concepts and follow up plan. Specific signs and symptoms that would indicate the need for higher level of care were discussed in detail warranting prompt ER evaluation. Tito Calderon [facility]07-25-2024 History of Present illness Narrative* Tito Calderon PA - 10/09/2023 10:30 AM EDT This note was created using THUBITriter. Subjective Edy Mohr is a 18 year old female. HPI 18-year-old female presents for low back pain x 1 week. Patient states she has been having low back pain on and off for quite some time. 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 She does not recall a specific injury. She states over the past week low back pain has been worse. It is worse with moving. She states it is more on the left side than the right side. She states occasionally the pain radiates towards her left hip and leg. No numbness or tingling in the legs. No loss of bowelor bladder function. Patient states occasionally she had some burning with urination this week, so wanted to be evaluated for UTI. No blood in the urine. No vaginal discharge. No concern for or STD. She has a Nexplanon. She denies any vomiting, abdominal pain, fevers. No history of kidneystone. She has had UTIs in the past, but none recent. No other complaint. No past medical history on file. PAST SURGICAL HISTORY Procedure Laterality Date NEXPLANON INSERTION 11/04/2022 ALLERGIES Patient has no known allergies. MEDICATIONS etonogestrel (NEXPLANON) 68 mg impl subdermal implant 68 mg by SUBDERMAL route. predniSONE (DELTASONE) 20 mg tablet Take 2 tablets by mouth once daily for 4 days. Take daily with food. No family history on file. Social History Tobacco Use Smoking status: Never Smokeless tobacco: Never Substance Use Topics Alcohol use: Not Currently Comment: socially Drug use: Never Review of Systems Constitutional: Negative for chills and fever. HENT: Negative for congestion, ear pain and sore throat. Respiratory: Negative for cough and shortness of breath. Cardiovascular: Negative for chest pain. Gastrointestinal: Negative for abdominal pain, diarrhea and vomiting. Genitourinary: Positive for dysuria. Negative for urgency, vaginal bleeding, vaginal discharge and vaginal pain. Musculoskeletal: Positive for back pain. Objective BP 102/66 Pulse 85 Temp 36.2 C (97.1 F) Resp 21 Wt 61 kg (134 lb 7.7 oz) LMP 04/10/2023 (Within Days) SpO2 98% BMI 23.82 kg/m Physical Exam Vitals and nursing note reviewed. Constitutional: General: She is not in acute distress. Appearance: Normal appearance. She is not toxic-appearing. HENT: Nose: Nose normal. Mouth/Throat: Mouth: Mucous membranes are moist. Eyes: Conjunctiva/sclera: Conjunctivae normal. Cardiovascular: Rate and Rhythm: Normal rate and regular rhythm. Pulmonary: Effort: Pulmonary effort is normal. Breath sounds: Normal breath sounds. Abdominal: General: Abdomen is flat. Palpations: Abdomen is soft. Tenderness: There is no abdominal tenderness. There is no right CVA tenderness, left CVA tenderness, guarding or rebound. Musculoskeletal: Lumbar back: Tenderness present. No bony tenderness. Normal range of motion. Negative right straight leg raise test and negative left straight leg raise test. Comments: Normal ROM lumbar spine. She does report pain with flexion and extension of the spine. Nomidline tenderness. Left-sided lumbar paraspinal muscle tenderness and tenderness into the left gluteus. Negative seated right leg raise. Normal sensation lower extremities. Normal gait. Skin: General: Skin is warm and dry. Neurological: Mental Status: She is alert. Assessment and Plan ASSESSMENT/PLAN: 1. Low back pain without sciatica, unspecified back pain laterality, unspecified chronicity - ICD9:724.2, ICD10: M54.50 - UA DIP, URINE (POC)-negative. Will send urine for culture. - URINE CULTURE -Suspect musculoskeletal low back pain. -Recommend rest, ice. Patient reports has been trying Tylenol/Motrin, but do not help. -Rx for prednisone. -Follow-up if no improvement. Diagnosis and treatment plan were discussed and questions were answered to the patient's satisfaction. Pt acknowledged understanding of concepts and follow up plan. Specific signs and symptoms that would indicate the need for higher level of care were discussed in detail warranting prompt ER evaluation. CHRIS Garrett documented in this encounterUniversity [facility]24 History of Present illness Narrative* Estella Harper RDMS - 04/29/2023 3:00 PM EST Radiology Service Progress Note PATIENT NAME: Edy Mohr DATE OF SERVICE: April 29, 2023 TIME: 3:43 PM PATIENT IDENTITY VERIFICATION COMPLETED USING TWO (2) IDENTIFIERS: Name and Date of confirmedby patient verbally. FALL SCREENING: Has the patient had 2 falls in the last year or 1 fall with injury or currently using an Ambulatory Assistive Device (Walker, Cane, Wheelchair, Crutches, etc.)? No PATIENT GENDER DATA: Female. status: : No status: NO. PATIENT RELEVANT IMPLANT DATA REVIEWED: Not Applicable PATIENT PRESENTS WITH AN IMPLANTABLE OR ATTACHED RETAIL BANKER: No RADIOLOGY DEPARTMENT: Ultrasound PERIPHERAL IV DATA: Not applicable SIGNED BY: Estella Harper RDMS April 29, 2023 3:43 PM documented in this encounterUniversity [facility]02-01-2024 History of Present illness Narrative* Chantel Taylor APRN.CNM - 04/17/2023 10:55 AM EST BREAST LUMP HISTORY: This is a 18 year old female that is new to office. Just moved back into town from [place]. in . Presents with breast mass right Mass has been present for 4 days Tenderness Yes, with touch Change in sizeYes, increased Any history breast mass No Caffeine use Yes minimal Last mammogram n/a Any previous breast surgery No Any family history breast disease/ breast cancer unsure- possibly grandmother OB History T0 L0 SAB0 IAB0 Ectopic0 Multiple0 Live Births0 History reviewed. No pertinent past medical history. PAST SURGICAL HISTORY Procedure Laterality Date NEXPLANON INSERTION 11/04/2022 History reviewed. No pertinent family history.SOCIAL HISTORY Social History Tobacco Use Smoking status: Never Smokeless tobacco: Never Substance Use Topics Alcohol use: Not Currently Comment: socially Drug use: Never PAST SURGICAL HISTORY Procedure Laterality Date NEXPLANON INSERTION 11/04/2022 Current Outpatient Medications Medication Sig etonogestrel (NEXPLANON) 68 mg impl subdermal implant 68 mg by SUBDERMAL route. No current facility-administered medications for this visit. Allergies As of Date: 04/17/2023 (No Known Allergies) Fully Assessed 04/17/2023 EXAMINATION: There is no concerning cervical, supraclavicular, or axillary lymphadenopathy. She has bilateral fibrocystic changes. On the left are no dominant masses, skin changes or nipple discharge. On the right there is dominant fullness, fibrocysytic changes, and 2-3 cm palpable breast cyst in the 11 o'clock location but no skin changes or nipple discharge. ASSESSMENT/PLAN: 1. Mass of upper outer quadrant of right breast - ICD9: 611.72, ICD10: N63.11 (primary diagnosis) 2. Mastalgia - ICD9: 611.71, ICD10: N64.4 - Breast US- right - Diagnostic mammogram- bilateral for mastalgia PLAN: Office Visit on 04/17/23 etonogestrel (NEXPLANON) 68 mg impl subdermal implant A discussion was held with the patient and patient who agrees with Imaging and Referral to breast health Will follow up with patient after results return Chantel Taylor APRN.CNM [facility] Diagnosis Mass of upper outer quadrant of right breast- Primary Mastalgia Mastodynia documented in this encounter [facility] note* Diagnosis Mass of upper outer quadrant of right breast Mastalgia Mastodynia documented in this [facility]* Diagnosis Low back pain without sciatica, unspecified back pain laterality, unspecified chronicity- Primary documented in this encounter [facility] note* Diagnosis Encounter for Nexplanon removal- Primary documented in this encounter [facility] Work Phone: Evaluation note* Diagnosis Dysuria- Primary Unprotected sex Problems related to high-risk sexual behavior documented in this encounter [facility] note* Diagnosis Encounter for supervision of normal first in first trimester (HCC)- Primary Supervision of normal first with uncertain dates in first trimester (HCC) 6 weeks gestation of (HCC) state, incidental Screen for STD (sexually transmitted disease) Screening examination for venereal disease Screening for cervical cancer Screening for malignant neoplasm of the cervix Depression with anxiety Dysthymic disorder Nausea and vomiting during (HCC) documented in this encounter [facility] note* Diagnosis with uncertain dates in first trimester (HCC) documented in this encounter [facility] for referral (narrative)* Diagnostic Procedure Only (Routine) - Authorized Specialty Diagnoses / Procedures Referred By Tessac t Referred To Contact [facility] Diagnoses Mass of upper outer quadrant of right breast Mastalgia Procedures US BREAST LTD RIGHT US BREAST UNI REAL TIME WITH IMAGE LIMITED Chantel Taylor APRN.CNM [address] [place] [address] [facility] [address] [place] [address] Referral ID Status Reason Start Date Expiration Date Visits Requested Visits Authorized [id number] Authorized Auto-Generat ed Referral 04/17/2023 05/16/2024 1 1 * Diagnostic Procedure Only (Routine) - Authorized Specialty Diagnoses / Procedures Referred By Mildred t Referred To Contact [facility] Diagnoses Mass of upper outer quadrant of right breast Mastalgia Procedures [facility] BILATERAL DIAGNOSTIC MAMMOGRAPHY COMPUTER-AIDED DETCJ BI Chantel Taylor APRN.CNM [address] [place] [address] [facility] [address] [place] [address] Referral ID Status Reason Start Date Expiration Date Visits Requested Visits Authorized [id number] Authorized Auto-Generat ed Referral 04/17/2023 05/16/2024 1 1 [facility] for referral (narrative)* Diagnostic Procedure Only (Routine) - Closed Specialty Diagnoses / Procedures Referred By Mildred t Referred To Contact [facility] Diagnoses Mass of upper outer quadrant of right breast Mastalgia Procedures US BREAST LTD RIGHT US BREAST UNI REAL TIME WITH IMAGE LIMITED Chantel Taylor APRN.CNM [address] [place] [address] [facility] [address] [place] [address] Referral ID Status Reason Start Date Expiration Date V isits Requested Visits Authorized [id number] Closed Auto-Generate d Referral 04/17/2023 05/16/2024 1 1 [facility] for referral (narrative)No reason for referral information availableWPremier [facility] Work Phone: Reason for visit Narrative* Clinic-Administered Medication (Routine) - Pending Review Specialty Diagnoses / Procedures Referred By Contac t Referred To Contact Diagnoses Encounter for Nexplanon removal Hilario Rao MD [address] [place], [place] [address] [facility], [address] [place] [address] Phone: tel: fax: Referral ID Status Reason Start Date Expiration Date V isits Requested Visits Authorized [id number] Pending Review 03/05/2024 03/05/2025 1 1 [facility] Work Phone: Summary Purpose Family History No Family History Records Found Relationship Condition Age at Onset Recorded Date/T irena mother Diabetes mellitus Unknown Advance Directives No Advanced Directives Records FoundNo Advanced Directives Records FoundNo Advanced Directives Records Found Chief Complaint and Reason for Visit Chief Complaint Admit Date acute - work physical May 21, 2024 2: 31pm Reason for Visit Admit Date Physical exam, pre-employment May 21, 2024 2:31pm Additional Source Comments Source Comments (unrecognize d section and content) In the event this informatio n is protected by the Federal Confidentiality of Alcohol and Drug Abuse Patient Records regulations: The Federal rules restrict any use of the information to criminally investigate or prosecute any alcohol or drug abuse patient.[facility] CenterIn the event this information is protected by the Federal Confidentiality of Alcohol and Drug Abuse Patient Records regulations: The Federal rules restrict any use of the information to criminally investigate or prosecute any alcohol or drug abuse patient.[facility] CenterIn the event this information is protected by the Federal Confidentiality of Alcohol and Drug Abuse Patient Records regulations: The Federal rules restrict any use of the information to criminally investigate or prosecute any alcohol or drug abuse patient.[facility] CenterIn the event this information is protected by the Federal Confidentiality of Alcohol and Drug Abuse Patient Records regulations: The Federal rules restrict any use of the information to criminally investigate or prosecute any alcohol or drug abuse patient.[facility] CenterIn the event this information is protected by the Federal Confidentiality of Alcohol and Drug Abuse Patient Records regulations: The Federal rules restrict any use of the information to criminally investigate or prosecute any alcohol or drug abuse patient.[facility] CenterIn the event this information is protected by the Federal Confidentiality of Alcohol and Drug Abuse Patient Records regulations: The Federal rules restrict any use of the information to criminally investigate or prosecute any alcohol or drug abuse patient.[facility] CenterIn the event this information is protected by the Federal Confidentiality of Alcohol and Drug Abuse Patient Records regulations: The Federal rules restrict any use of the information to criminally investigate or prosecute any alcohol or drug abuse patient.[facility] CenterIn the event this information is protected by the Federal Confidentiality of Alcohol and Drug Abuse Patient Records regulations: The Federal rules restrict any use of the information to criminally investigate or prosecute any alcohol or drug abuse patient.[facility] CenterIn the event this information is protected by the Federal Confidentiality of Alcohol and Drug Abuse Patient Records regulations: The Federal rules restrict any use of the information to criminally investigate or prosecute any alcohol or drug abuse patient.[facility] Reason for Visit (unrecogniz ed section and content) Reason Comments Breast Problem Reason Comments Radiology US Specialty Diagnoses / Procedures Referred By Contac t Referred To Contact [facility] Diagnoses Mass of upper outer quadrant of right breast Mastalgia Procedures US BREAST LTD RIGHT US BREAST UNI REAL TIME WITH IMAGE LIMITED Chantel Taylor APRN.CNRoc [address] [place] [address] [facility] [address] [place] [address] Referral ID Status Reason Start Date Expiration Date V isits Requested Visits Authorized [id number] Closed Auto-Generate d Referral 04/17/2023 05/16/2024 1 1 Reason Comments Urinary Problem Lower back pain, bur enedina with urination x 1 week Reason Comments Results Reason Comments UTI Reason Comments Initial OB Visit Care Teams (unrecognized sec tion and content) Churn Tender Relationship Specialty Start Date End Date Sophia Jakci L, BROOD HATCHERY MANAGER-DENTAL CHAIR ASSEMBLER [address] [facility], [facility] [address] [place] [address] PCP - General 11/27/18 Team Status: Active Member Role Status Dates CHRIS Cheney Primary Care Provider Active Team Status: Inactive Member Role Status Dates Dr. Deepali Marrero MD Primary Care Provider Active Start: May 21, 2024 End: May 21, 2024 Dr. Deepali Marrero MD Referring Provider Active Start: May 21, 2024 End: May 21, 2024 CHRIS Cheney Attending Provider Active St art: May 21, 2024 End: May 21, 2024 Team Status: Inactive Member Role Status Dates CHRIS Cheney Primary Care Provider Active Start: May 21, 2024 End: May 21, 2024 CHRIS Cheney Attending Provider Active St art: May 21, 2024 End: May 21, 2024 CHRIS Cheney Referring Provider Active St art: May 21, 2024 End: May 21, 2024 INFORMATION SOURCE (unrecogn ized section and content) DATE CREATED AUTHOR 03/08/2024 [facility] DATE CREATED AUTHOR AUTHOR'S ORGANIZ ATION 06/04/2024 [facility] DATE CREATED AUTHOR AUTHOR'S ORGANIZ ATION 09/04/2024 [facility] Goals (unrecognized section and content) Goals may be documented in a n alternate section FOR RECORDS PERTAINING TO PATIENTS WHO ARE OR HAVE BEEN ENROLLED IN A CHEMICAL DEPENDENCY/SUBSTANCEABUSE PROGRAM, SOME INFORMATION MAY BE OMITTED. This clinical summary was aggregated from multiple sources. Caution should be exercised in using it in the provision of clinical care. This summary normalizes information from multiple sources, and as a consequence, information in this document may materially change the coding, format and clinical context of patient data. In addition, data may be omitted in some cases. CLINICAL DECISIONS SHOULD BE BASED ON THE PRIMARY CLINICAL RECORDS. [facility]. provides no warranty or guarantee of the accuracy or completeness of information in this document.
[2024-09-04 20:23] LABS: Mucous, Urine 0 SEEN /hpf (<or=2+); Red Blood Cells-Urine 0 SEEN /hpf (0-5); White Blood Cells 0 SEEN /hpf (0-5)
[2024-09-04 20:34] LABS: Hematocrit 40.8 % (37-47); Hemoglobin 13.8 g/dL (12.0-15.0)
[2024-09-04 21:03] LABS: hCG Titer Quant., Serum 35219 mIU/mL (<9 non-preg)
[2024-09-04 21:12] LABS: Color, Urine Yellow (Yellow); Glucose, Dipstick Normal (Normal); Ketone-Dipstick 5 mg/dl (Negative); Leukocyte Esterase-Dipstick Negative /ul (Negative); Nitrite-Dipstick Negative (Negative); Occult Blood-Urine Negative /ul (Negative); Protein-Dipstick Negative (Negative); Urine Bilirubin Dipstick Negative (Negative); Urine Clarity Clear (Clear); Urine Urobilinogen Normal (Normal)
[2024-09-04 21:21] LABS: Amorphous Sediment 1+; Bacteria 1+ /hpf (None Seen); Squamous Epithelial Cells - UA 0-5 SEEN /hpf (5-10)
[2024-09-04 21:48] VITALS: BP 98/60; PULSE 70; RESP 14; TEMP 36.8; O2SAT 99
--- NOTE | 2024-09-04 23:34 | EDS_ITS ---
HPI HPI - Female History of Present Illness Chief Complaint: Vag Bld, Preg Informant: patient Narrative Narrative: 19-year-old female presenting to the emergency room with concerns for vaginal bleeding. Patient states that she was seen [facility]. She had quantitative hCG with levels of around 22,000 on . She states that she had a pelvic ultrasound performed. She does not know how far along she is but is approximately 6-7 weeks by date. She states that today she saw a small amount of blood after using the bathroom and had a small amount of discharge. She denies any leakage of fluid or cramping. She has not had any bleeding since. She was advised by family to come to emergency out of precaution. Review of the patient's blood work on MyChart with permission from the patient shows that she is O+. She actually had 2 hCG levels that were increasing. PFSH PFSH Allergy/AdvReac Type Severity Reaction Status Date / Time No Known Allergies Allergy Verified 09/04/24 18:39 Family History Mother Diabetes Social History Smoking Status: Former smoker ROS ROS ED Constitutional Constitutional ED: Denies chills, fever(s) or weight loss Eyes Eyes: Denies change in vision or diplopia ENT ENT ED: Denies ear pain, rhinorrhea or sore throat Cardiovascular Cardiovascular: Denies chest pain, orthopnea, palpitations or racing heartbeat Respiratory/Chest Respiratory/Chest: Denies cough, dyspnea or orthopnea Gastrointestinal Gastrointestinal: Denies abdominal pain, diarrhea, nausea or vomiting Genitourinary Genitourinary ED: Reports other Details: See HPI ; Denies dysuria, hematuria or urinary frequency Musculoskeletal Musculoskeletal: Denies arthralgias or myalgias Integumentary Denies abscess or rash Neurologic Neurologic: Denies headache(s) or weakness Psychiatric Psychiatric: Denies anxiety, depression, suicidal ideation or suicidal thoughts Endocrine Endocrinology: Denies polydipsia, polyphagia or polyuria Allergic/Immunologic Allergic/Immunologic ED: Denies mouth swelling, tongue swelling or urticaria EXAM Physical Exam Const Vital Signs: 09/04/24 18:39 09/04/24 21:48 Temperature 98.4 F 98.3 F Temperature Source Oral Pulse Rate 104 H 70 Respiratory Rate 16 14 Blood Pressure 117/77 98/60 Blood Pressure Mean 90 72 Pulse Ox 100 99 Oxygen Delivery Method Room Air Positive well nourished and well developed General Appearance ED: well developed HEENT Reports normocephalic, head/scalp atraumatic and moist mucous membranes Eyes PERRL and EOMs intact bilaterally Neck no lymphadenopathy, supple and no JVD Resp normal respiratory effort and clear to auscultation bilaterally Cardio regular rate, regular rhythm and no murmurs GI normal to inspection, nondistended, normoactive bowel sounds and non-tender Palpation: soft Back/Spine no CVA tenderness and normal ROM Extremity normal to inspection General Extremety ED: Negative for edema General Extremity: Negative for edema Neuro oriented x3 and CN's II-XII intact bilaterally Sensorium / Orientation: alert Motor Exam: strength 5/5 throughout Psych mental status grossly normal Mood & Affect: Negative for depressed or tearful Skin no rashes or lesions noted and no wounds MDM MDM MDM Narrative Medical decision making narrative: Differential diagnosis includes but not limited to threatened miscarriage incomplete miscarriage demise blighted ovum Patient's hemoglobin 13.8 hCG level is 35,219. Urinalysis with no overt infection. Pelvic ultrasound was obtained which demonstrates a single live intrauterine . Please see radiologist read for full details. Patient was given reassurance. 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 Should she have continued symptoms or concerns she is certainly welcome to return here to emergency or discussed with obstetrics on-call. Patient is comfortable with this plan History & Record Review Discussion w/independent historian: Patient Additional record(s) reviewed:: Prior outpatient record Lab Data Attestation: I reviewed the patient's lab results. Labs: Laboratory Results - last 24 hr 09/04/24 09/04/24 20:03 20:18 Hgb 13.8 Hct 40.8 HCG, Quant 81008 H Urine Color Yellow Urine Clarity Clear Urine pH 7.0 Ur Specific Virgin 1.010 Urine Protein Negative Urine Glucose (UA) Normal Urine Ketones 5 H Urine Occult Blood Negative Urine Nitrite Negative Urine Bilirubin Negative Urine Urobilinogen Normal Ur Leukocyte Esterase Negative Urine RBC 0 SEEN Urine WBC 0 SEEN Ur Squamous Epith Cells 0-5 SEEN Amorphous Sediment 1+ Urine Bacteria 1+ Urine Mucus 0 SEEN Radiography Diagnostic Testing: Clinical Impression(s) from Imaging Studies Obstetrics Ultrasound 09/04/24 20:07 IMPRESSION: UNREMARKABLE FIRST TRIMESTER ULTRASOUND. Reading Location: [id number] Discharge Plan Triage Chief Complaint: Vag Bld, Preg ED Provider: Jimmy Javier Dx/Rx/DC Orders Clinical Impression: Threatened Instructions: Miscarriage Threatened Primary Care Provider: Care Physician,No Primary Referrals: Rosa Cordon MD [Med Staff - Active Staff] - (call on Friday to inform of ED Visit) Care Physician,No Primary [Primary Care Provider] - Activity Restrictions/Additional Instructions: Please stay in contact with your home stereo equipment installer. If you have continued symptoms please call them or return to the emergency Pelvic rest includes avoidance of intercourse heavy lifting or strenuous exercise Print Language: Norwegian Disposition Disposition: Home, Self Care Discharge Date/Time: 09/04/24 21:52
== END 2024-09-04 21:52 | disposition home or self-care (01) ==
PROVIDERS: Emergency Provider Emergency Medicine; Visit Provider Emergency Medicine
DX: O20.0 Threatened abortion (principal); Z87.891 Personal history of nicotine dependence; Z3A.01 Less than 8 weeks gestation of pregnancy
CPT/HCPCS: 76817; 81001; 84702; 85014; 85018; 99283; A4216